=== PATIENT | female | born 2000 | race Caucasian/White ===

== ENCOUNTER 2019-11-14 13:12 | Outpatient (CLI) | payer MEDICAID, SELFPAY ==
--- NOTE | 2019-11-14 | US_ITS ---
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 Cervix: Not visualized. Placenta: Anterior, no previa or abruption. Grade: 1 HEART: FHR of 153 BPM. measurements: BPD = 7.9 cm = 31w4d HC = 29.1 cm = 32w0d AC = 28.0 cm = 32w0d FL = 6.2 cm = 32w0d MEGHANA: 10.0 cm, just above the 50th percentile. Largest vertical pocket 3.9 cm. EFW: 1878 g; 46.6 %. AGA by ultrasound: 31 weeks 6 days IAIN by ultrasound: 01/10/2020 US/[place] [id number] IMPRESSION: 1. Single intrauterine gestation of 31 weeks 6 days with an EDC of 01/10/2020. C orrelates with the first trimester EDC of 01/09/2020. 2. Low normal amniotic fluid index.
== END 2019-11-14 13:13 | disposition home or self-care (01) ==
PROVIDERS: Family Provider Family Medicine; PCP Family Medicine; Visit Provider Family Medicine
DX: Z01.89 Encounter for other specified special examinations (principal)

== ENCOUNTER 2019-11-26 10:10 | Outpatient (CLI) | payer MEDICAID, SELFPAY ==
--- NOTE | 2019-11-26 | US_ITS ---
WS: [id number] ULTRASOUND OB LIMITED TECHNIQUE: Limited ultrasound examination of the fetus. CLINICAL INFORMATION: GESTATIONAL DIABETES MELLITUS IN THIRD TRIMESTER COMPARISON: November 14, 2019 FINDINGS: Single interuterine gestation. presentation is vertex Placental location is anterior. Placenta grade: 1 heart rate 139 BPM. Normal MEGHANA 12.99 Biophysical profile 8 out of 8. breathin movement: 2 tone: 2 Amniotic fluid: 2 IMPRESSION Normal biophysical profile 8 out of 8
== END 2019-11-26 10:11 | disposition home or self-care (01) ==
LOC: RADOUTREAD 14:04
PROVIDERS: Family Provider Family Medicine; PCP Family Medicine; Visit Provider Family Medicine
DX: Z76.89 Persons encountering health services in other specified circumstances (principal)

== ENCOUNTER 2019-11-26 12:45 | Outpatient (CLI) | payer MEDICAID, SELFPAY ==
[2019-11-26 12:45] VITALS: BMI 26.4
[2019-11-26 13:07] VITALS: RESP 18; TEMP 36.9
[2019-11-26 14:01] VITALS: BP 108/65; PULSE 102
== END 2019-11-26 13:43 | disposition home or self-care (01) ==
LOC: OPOB 12:54 → OBGYN 12:55
PROVIDERS: Family Provider Family Medicine; PCP Family Medicine; Visit Provider Family Medicine
DX: O24.419 Gestational diabetes mellitus in pregnancy, unspecified control (principal); Z3A.00 Weeks of gestation of pregnancy not specified
CPT/HCPCS: 59025

== ENCOUNTER 2019-12-03 11:34 | Outpatient (CLI) | payer MEDICAID, SELFPAY ==
[2019-12-03 13:20] VITALS: BMI 21.2
--- NOTE | 2019-12-03 13:33 | PC.NURSE ---
1140- Pt arrived on OB floor via ambulation for scheduled NST.
== END 2019-12-03 12:35 | disposition home or self-care (01) ==
PROVIDERS: Family Provider Family Medicine; PCP Family Medicine; Visit Provider Family Medicine
DX: O24.419 Gestational diabetes mellitus in pregnancy, unspecified control (principal); Z3A.00 Weeks of gestation of pregnancy not specified
CPT/HCPCS: 59025

== ENCOUNTER 2019-12-06 21:12 | Outpatient (CLI) | payer MEDICAID, SELFPAY ==
[2019-12-06 21:26] VITALS: RESP 16; TEMP 36.7
[2019-12-06 21:27] VITALS: BMI 21.7
[2019-12-06 21:32] VITALS: BP 124/77; PULSE 96
[2019-12-06 22:15] LABS: Bilirubin Urine Neg (NEGATIVE); Blood Urine 3+ (Negative); Glucose Urine UA Norm (Normal); Ketones Urine Negative (Negative); Leukocyte Esterase Urine 2+ (Negative); Nitrate Urine Negative (Negative); Protein Urine Neg (Negative); RBC Urine 0-4 /hpf (0-2); Specific Gravity, Urine 1.015 (1.005-1.030); Sulfosalicylic Acid Urine Negative; Urine Appearance Cloudy (CLEAR); Urine Color Yellow (Yellow); Urobilinogen Urine Norm (Negative); WBC Urine 25-40 /hpf (0-5); pH Urine 6 (5-7)
[2019-12-06 22:16] LABS: Add Urine Culture? Yes; Amorphous Sediment Urine 1+; Bacteria Urine 2+
[2019-12-06 22:26] VITALS: BP 133/67; PULSE 86
[2019-12-06 22:37] VITALS: TEMP 37
[2019-12-06] MEDS: nitrofurantoin SR (BID) 100 mg Capsule PO (22:45)
[2019-12-06 23:17] VITALS: RESP 16; TEMP 37
--- NOTE | 2019-12-07 12:18 | PC.NURSE ---
Called [facility] pharmacy [place], and called in patient's prescription for macrobid 100 mg BID for 7 days, no refills. Called Lisandro back after talking with pharmacy to confirm prescription had been called in for her.
== END 2019-12-06 22:47 | disposition home or self-care (01) ==
LOC: OPOB 21:15 → OBGYN 22:30 → OPOB 12-09 09:01
PROVIDERS: Family Provider Family Medicine; PCP Family Medicine; Visit Provider Family Medicine
DX: O26.899 Other specified pregnancy related conditions, unspecified trimester (principal); Z3A.00 Weeks of gestation of pregnancy not specified; R10.9 Unspecified abdominal pain
CPT/HCPCS: 59025; 81001; 87077; 87086; 87186; 99211

== ENCOUNTER 2019-12-10 10:10 | Outpatient (CLI) | payer MEDICAID, SELFPAY ==
[2019-12-10 10:34] VITALS: BP 113/71; PULSE 78
[2019-12-10 10:36] VITALS: RESP 17; TEMP 36.6; BMI 21.6
[2019-12-10 10:49] VITALS: BP 103/69; PULSE 86
== END 2019-12-10 11:00 | disposition home or self-care (01) ==
LOC: OPOB 10:29 → OBGYN 12-16 07:56
PROVIDERS: Family Provider Family Medicine; PCP Family Medicine; Visit Provider Family Medicine
DX: O24.419 Gestational diabetes mellitus in pregnancy, unspecified control (principal); Z3A.00 Weeks of gestation of pregnancy not specified
CPT/HCPCS: 59025; 99211

== ENCOUNTER 2019-12-17 10:08 | Outpatient (CLI) | payer MEDICAID, SELFPAY ==
[2019-12-17 10:38] VITALS: BMI 21.6
[2019-12-17 10:51] VITALS: BP 116/69; PULSE 100; RESP 18; TEMP 36.8
== END 2019-12-17 10:48 | disposition home or self-care (01) ==
LOC: OPOB 10:10 → OBGYN 12-23 09:21
PROVIDERS: Family Provider Family Medicine; PCP Family Medicine; Visit Provider Family Medicine
DX: O24.419 Gestational diabetes mellitus in pregnancy, unspecified control (principal); Z3A.00 Weeks of gestation of pregnancy not specified
CPT/HCPCS: 59025

== ENCOUNTER 2019-12-24 14:25 | Outpatient (CLI) | payer MEDICAID, SELFPAY ==
[2019-12-24 14:30] VITALS: RESP 16; TEMP 36.5
[2019-12-24 14:41] VITALS: BP 117/77; PULSE 84
[2019-12-24 15:00] VITALS: BP 130/85; PULSE 94
[2019-12-24 15:14] VITALS: BMI 22.3
== END 2019-12-24 15:20 | disposition home or self-care (01) ==
LOC: OPOB 14:35 → OBGYN 14:36
PROVIDERS: Family Provider Family Medicine; PCP Family Medicine; Visit Provider Family Medicine
DX: O24.419 Gestational diabetes mellitus in pregnancy, unspecified control (principal); Z3A.00 Weeks of gestation of pregnancy not specified
CPT/HCPCS: 59025; 99211

== ENCOUNTER 2019-12-27 00:27 | Outpatient (CLI) | payer MEDICAID, SELFPAY ==
[2019-12-27 00:36] VITALS: TEMP 36.6
[2019-12-27 00:37] VITALS: BMI 22.4
[2019-12-27 00:59] VITALS: BP 127/75; PULSE 84
[2019-12-27 01:14] VITALS: BP 124/75; PULSE 90
[2019-12-27 01:24] LABS: Bilirubin Urine Neg (NEGATIVE); Blood Urine 2+ (Negative); Glucose Urine UA Norm (Normal); Ketones Urine Negative (Negative); Leukocyte Esterase Urine 2+ (Negative); Nitrate Urine Negative (Negative); Protein Urine Trace (Negative); Specific Gravity, Urine 1.005 (1.005-1.030); Urine Color Straw (Yellow); Urobilinogen Urine Norm (Negative); pH Urine 7 (5-7)
[2019-12-27 01:25] LABS: Add Urine Culture? Yes; Bacteria Urine 1+; RBC Urine 0-4 /hpf (0-2); WBC Urine 25-40 /hpf (0-5)
[2019-12-27 01:29] VITALS: BP 0/0
[2019-12-27 01:30] VITALS: BP 139/85; PULSE 82; RESP 18; TEMP 36.7
[2019-12-27] MEDS: cefUROXime 250 mg Tablet PO (01:52)
== END 2019-12-27 01:52 | disposition home or self-care (01) ==
LOC: OPOB 00:29 → OBGYN 01:39
PROVIDERS: Family Provider Family Medicine; PCP Family Medicine; Visit Provider Family Medicine
DX: O26.899 Other specified pregnancy related conditions, unspecified trimester (principal); Z3A.00 Weeks of gestation of pregnancy not specified; R10.9 Unspecified abdominal pain
CPT/HCPCS: 59025; 81001; 87077; 87086; 87186; 99211

== ENCOUNTER 2020-01-03 21:30 | Outpatient (CLI) | payer MEDICAID, SELFPAY ==
[2020-01-03 21:45] VITALS: BP 137/81; PULSE 97; RESP 16; RESP 18; TEMP 36.7
[2020-01-03 23:43] VITALS: RESP 16; TEMP 36.7
[2020-01-03 23:53] VITALS: BP 123/70; PULSE 85
== END 2020-01-03 23:56 | disposition home or self-care (01) ==
LOC: OPOB 21:43 → OBGYN 21:56
PROVIDERS: Family Provider Family Medicine; PCP Family Medicine; Visit Provider Family Medicine
DX: O36.8190 Decreased fetal movements, unspecified trimester, not applicable or unspecified (principal); Z3A.00 Weeks of gestation of pregnancy not specified
CPT/HCPCS: 59025; 99211

== ENCOUNTER 2020-01-08 05:41 | Inpatient (IN) | payer BC, MEDICAID, SELFPAY ==
[2020-01-08] VITALS (65 sets, daily range): BP systolic 0–153; BP diastolic 0–79; PULSE 51–138; RESP 16–18; TEMP 36.7; O2SAT 96–99; BMI 22.4
[2020-01-08] MEDS: lactated ringers 1,000 ML 999 ML IV ×4 (06:15→14:20)
[2020-01-08 06:32] LABS: Basophils % 0.3 %; Eosinophils # 0.1 10^3/uL (0.0-0.8); Eosinophils % 0.7 %; Hematocrit 28.9 % (37.0-47.0); Hemoglobin 8.8 g/dL (11.5-15.3); Lymphocytes # 1.9 10^3/uL (1.5-6.5); Lymphocytes % 16.4 %; Mean Corpuscular HGB Conc 30.4 g/dL (30.0-36.0); Mean Corpuscular Hemoglobin 24.1 pg (28.0-34.0); Mean Corpuscular Volume 79.2 fL (81-99); Monocytes # 0.8 10^3/uL (0.2-0.9); Monocytes % 6.9 %; Neutrophils # 8.6 10^3/uL (1.8-8.0); Nucleated Red Blood Cells % 0 %; Platelet Count 499 10^3/cmm (130-400); Red Blood Count 3.65 10^6/uL (4.1-5.3); Red Cell Distribution Width 14.9 % (12.1-15.1); White Blood Count 11.4 10^3/uL (4.5-13.0)
[2020-01-08] MEDS: miSOPROStol 100 mcg tablet 25 MCG VAGINAL (08:28)
--- NOTE | 2020-01-08 14:24 | ANES.PREANE2 ---
Pre-Anesthetic Assessment Pre-Anesthetic Assessment: Height/Weight: Height 1.8 m Weight 73.028 kg Temp Pulse Resp BP Pulse Ox 98.0 F 100 18 140/59 99 01/08/20 06:26 01/08/20 14:11 01/08/20 06:26 01/08/20 14:11 01/08/20 14:15 Preop Diagnosis: IUP Proposed Procedure: labor epidural Was Beta Tj taken within 24 hours: N/A Social: Social History: No alcohol and No tobacco Exam: Pre-Anes Outpt Exam: alert, oriented x 3, clear to auscultation bilaterally and regular rate & rhythm Airway: Submandibular: WNL Cervical ROM: WNL MP: 1 History/ROS: No significant history except as noted Pulmonary: Pulmonary: None reported CV/HEM: CV/HEM: None reported : : None reported Hepatic: Hepatic: None reported GI: GI: None reported Metabolic: Comments: gestational diabetic Musc/skel: Musc/skel: None reported Neuropsych: Neuropsych: None reported Anesthetic Plan: ASA status: 2 Anesthesia: Anesthesia Evaluation Risk of > 500 ml blood loss (7ml/kg in children): No Meds/Allergies Current Medications: Current Medications Generic Name Dose Route Start Last Admin Trade Name Freq PRN Reason Stop Dose Admin Lactated Ringer's 1,000 mls @ 999 m ls/hr 01/08/20 10:41 01/08/20 12:53 Lactated Ringers IV 999 mls/hr .Q1H1M PRN Administration Per L&D Rescitati on Protocol [facility] Anesthesia Female Reproductive History: : 1 Data Anesthesia CBC & Chem 7: 01/08/20 06:00 Other Labs: Laboratory Results - last 48 hr 01/08/20 06:00 WBC 11.4 RBC 3.65 L Hgb 8.8 L Hct 28.9 L MCV 79.2 L MCH 24.1 L MCHC 30.4 RDW 14.9 Plt Count 499 H MPV 9.0 Neut % (Auto) 75.0 Lymph % (Auto) 16.4 [place] % (Auto) 6.9 Eos % (Auto) 0.7 Baso % (Auto) 0.3 Neut # (Auto) 8.6 H Lymph # (Auto) 1.9 [place] # (Auto) 0.8 Eos # (Auto) 0.1 Baso # (Auto) 0.0 Nucleated RBC % (auto) 0 Nucleated RBCs # 0.0 Cardiac Studies: No Data to Display
--- NOTE | 2020-01-08 14:27 | ANES.PROC ---
Anesthesia Procedures Procedure/Date: 01/08/20 Epidural: Time Out Performed: Yes Consents Signed: Procedure Consent Consent: requested by attending/covering physician Lumbar Level: L4-L5 Epidural position: sitting Epidural procedure: sterile prep of area, 1% lidocaine to numb the area, 18 g needle, negative for paresthesia passed, neg for paresthesia, test dose given, 1.5% xylocaine 1:200k epi (5ml), placed PCEA, no systemic response, sterile dressing applied, L.U.D. no apparent complications and 0.2% Ropiavacaine @ mls/hr (13)
--- NOTE | 2020-01-08 15:34 | PC.NURSE ---
This nurse used a size 10 Mont[place] straight catheter, this is not an option to click.
--- NOTE | 2020-01-08 17:58 | P.PCNOB_ITS ---
Delivery Note: Date of delivery: January 08, 2020 this 19-year-old 1 now para 1 female at 39 weeks and 6 days gestation was admitted for misoprostol cervical ripening for induction purposes secondary to gestational diabetes and term . Benefits and risks were discussed with the patient and spouse prior to admission. Misoprostol 25 mcg was placed after a reactive strip was found. The infant had a prolonged deceleration shortly after arrival when mom became hypotensive after a needlestick to begin an IV. However, the recovered well. There were occasional spells with decelerations with positioning but did recover. Artificial rupture membranes was accomplished at around 13:15 PM with clear fluid obtained. The patient then began having harder contractions and required epidural anesthesia for comfort. She did then dilate to complete cervical dilatation and was allowed to labor down for approximately 1 hour prior to beginning pushing. She delivered a large 9 pound 1 ounce male infant at 1719. Upon delivery of the head the mouth and nose was suctioned. There was no nuchal cord. There was a moderate shoulder dystocia which was resolved with Kathryn, fundal pressure and rotation of the infant. The infant cried well at and had Apgars of 8 and 9 at 1 and 5 minutes respectively. There was a midline second-degree episiotomy with no extension. Layered surgical closure using the epidural anesthesia that was placed. The placenta delivered spontaneously and intact at 1724. Estimated blood loss approximately 144 mL. Presently, both mother and infant are doing well. Pre-Delivery Course: This patient began care with this physician early in her and was followed throughout her without problems. Maternal blood type was A+ with antibody screen negative. Hepatitis B, hepatitis C, RPR and HIV were negative. Rubella was immune and group B strep was negative. The patient was positive for gestational diabetes but was well controlled with oral metformin 1000 mg twice daily. Ultrasound testing demonstrated no abnormalities and a decision was made for induction after 39 weeks gestation secondary to the gestational diabetes. Delivery: Spontaneous vaginal delivery. Post-Delivery Status: Patient appears to be doing well with mild lochia and will be followed for routine postdelivery care. A&P Assessment and plan (1) Spontaneous vaginal delivery: There was a normal spontaneous vaginal delivery with midline second-degree episiotomy and repair. I expect routine postdelivery care. We will monitor her bleeding and make adjustments as necessary. Will resume her metformin. Status: Acute Coding Level of Care Code Acute Rn Registry for Chg Fwd Diagnoses Spontaneous vaginal delivery O80
[2020-01-08] MEDS: benzocaine-menthol 78 gm Canister 1 SPRAY TOPICAL (19:28)
[2020-01-08] MEDS: lanolin oint 7 gm 1 APPLIC TOPICAL (19:28)
[2020-01-09 02:00] VITALS: BP 118/77; PULSE 81; RESP 16
[2020-01-09 04:00] VITALS: BP 114/75; PULSE 80; RESP 16
[2020-01-09 06:43] LABS: Hematocrit 28.4 % (37.0-47.0); Hemoglobin 8.5 g/dL (11.5-15.3); Mean Corpuscular HGB Conc 29.9 g/dL (30.0-36.0); Mean Corpuscular Hemoglobin 24.2 pg (28.0-34.0); Mean Corpuscular Volume 80.9 fL (81-99); Mean Platelet Volume 8.8 fL (7.4-10.4); Platelet Count 382 10^3/cmm (130-400); Red Blood Count 3.51 10^6/uL (4.1-5.3); Red Cell Distribution Width 15.2 % (12.1-15.1); White Blood Count 10.3 10^3/uL (4.5-13.0)
[2020-01-09] MEDS: docusate sodium 100 mg Capsule PO (09:05)
[2020-01-09] MEDS: prenatal vitamin Capsule 1 CAP PO (09:05)
--- NOTE | 2020-01-09 09:06 | P.DS_ITS ---
Discharge Providers MANUFACTURING ENGINEERING TECHNOLOGIST Date of Admission: 01/08/20 05:41 Date of Discharge: 01/13/20 Attending Provider at Admission: Michael De Paz MD Attending Provider at Discharge: Michael De Paz MD Primary Care Provider: Michael De Paz MD Diagnoses at Discharge Discharge Diagnosis (1) Spontaneous vaginal delivery: Status: Acute Problem details: Patient is doing well at this time with just mild lochia. She is ambulating well and tolerating a regular diet. She was felt to be stable for discharge this evening. Reason for Visit 2 Reason for Visit: Reason For Visit: induction Hospital Course Hospital Course: Patient was admitted on the morning of the day of delivery for misoprostol cervical ripening for induction purposes secondary to gestational diabetes. She delivered by spontaneous vaginal delivery a 9 pound 1 ounce male infant without problems. She did receive epidural anesthesia. She is doing well with just mild lochia and is breast-feeding well. She is felt to be stable for discharge this evening. Information Peripartum Data: Delivery Method: Vaginal Physical Exam Const: COMMON NORMALS: no apparent distress, oriented x3 and well nourished GENERAL APPEARANCE: cooperative ORIENTATION/CONSCIOUSNESS: Yes awake Neck/C-Spine: COMMON NORMALS: no JVD Resp: COMMON NORMALS: normal respiratory effort, no retractions, no use of accessory muscles and clear to auscultation bilaterally AUSCULTATION: clear to auscultation bilaterally Cardio: COMMON NORMALS: no JVD, regular rate, regular rhythm and no murmurs RATE: regular rate RHYTHM: regular rhythm GI: COMMON NORMALS: normal to inspection, nondistended, normoactive bowel sounds, soft to palpation and non-tender (Fundus is firm this morning.) PALPATION: Yes soft Extremity: COMMON NORMALS: normal to inspection, full ROM, normal capillary refill, no calf tenderness and no pedal edema Neuro: COMMON NORMALS: oriented x3, CN's II-XII intact bilaterally, moves all extremities, no focal motor deficits and no sensory deficits noted Psych: COMMON NORMALS: mental status grossly normal, cooperative and affect normal APPEARANCE: Yes grossly normal Urinary Catheter Management^: Straight: Cath Placed During This Visit: yes Urinary Catheter Date of Insertion: 01/08/20 Urinary Catheter Time of Insertion: 15:04 Discharge Data Data Completed and Pending: Labs from last 24 hours 01/09/20 06:30 WBC 10.3 RBC 3.51 L Hgb 8.5 L Hct 28.4 L MCV 80.9 L MCH 24.2 L MCHC 29.9 L RDW 15.2 H Plt Count 382 MPV 8.8 Vitals: Last Vital Signs Temp 98.0 F 01/08/20 06:26 Pulse 80 01/09/20 04:00 Resp 16 01/09/20 04:00 BP 114/75 01/09/20 04:00 Pulse Ox 99 01/08/20 14:15 Discharge Plan Discharge Patient Disposition: Home, Self-Care Condition: Stable Prescriptions: New Dermoplast (with menthol) 20-0.5 % Aerosol 1 spray topical PRN PRN (Reason: Pain) Qty: 90 RF: 0 docusate sodium 100 mg Capsule 100 mg PO BID Qty: 60 RF: 1 ibuprofen 800 mg Tablet 800 mg PO TID Qty: 90 RF: 2 Lanolin (HPA) 100 % Cream 1 applic topical PRN PRN (Reason: Dryness) Qty: 60 RF: 0 Continued Vitamin 27 mg iron- 800 mcg Tablet 1 tab PO DAILY RF: 0 Discharge Orders: Discharge Order (Routine); Ordered 01/09/20 Ordered By: Michael De Paz Referrals: Michael De Paz MD [Primary Care Provider] - 02/19/20 1:30 pm Discharge Diet: Usual diet Discharge Activity: Resume usual activity Patient Instructions: Bottle Feeding Your Baby (GEN), OB Discharge Report, OB Food/Drug Interaction Guide, OB Care at Home, OB Home Care, OB Proud Parent Packet, OB Vaginal Deliveries Activity Restrictions/Additional Instructions: Please make patient appointment to see this physician in 6 weeks and as needed. Discharge Date/Time: 01/09/20 18:30 Discharge Attestations MANUFACTURING ENGINEERING TECHNOLOGIST Time Spent in Discharge Care*: less than 30 min Specific Discharge Activities: Specific discharge activities: educating patie nt, documenting/other paperwork and evaluating patient/reviewing data Status at Discharge: Cognitive status at discharge: cognitively intact , Behavioral status at discharge: cooperative , Functional status at discharge: independent ambulation Overall status at discharge: patient is back to baseline Coding Level of Care Code Acute Contact Center Professional for [facility] Fwd Exam Comprehensive Diagnoses Spontaneous vaginal delivery O80
[2020-01-09 10:12] VITALS: BP 120/89; PULSE 70; RESP 18
[2020-01-09 16:20] VITALS: BP 115/60; PULSE 70; RESP 18
[2020-01-09 18:15] VITALS: BP 110/65; PULSE 65; RESP 18
== END 2020-01-09 18:30 | disposition home or self-care (01) | DRG 807 ==
PROVIDERS: Admitting Provider Family Medicine; Family Provider Family Medicine; PCP Family Medicine; Visit Provider Family Medicine
DX: O24.425 Gestational diabetes mellitus in childbirth, controlled by oral hypoglycemic drugs (principal); Z37.0 Single live birth; O76 Abnormality in fetal heart rate and rhythm complicating labor and delivery; O66.0 Obstructed labor due to shoulder dystocia; O70.1 Second degree perineal laceration during delivery; Z3A.39 39 weeks gestation of pregnancy
CPT/HCPCS: 12345; 36415; 51702; 59025; 59409; 85025; 85027; J2795

== ENCOUNTER 2021-04-22 09:19 | Outpatient (CLI) | payer BC, MEDICAID, SELFPAY ==
[2021-04-22 09:39] VITALS: TEMP 36
[2021-04-22 09:40] VITALS: BP 104/62; PULSE 94
[2021-04-22 09:45] VITALS: BMI 24.0
[2021-04-22 09:56] VITALS: BP 103/57; PULSE 71
== END 2021-04-22 10:10 | disposition home or self-care (01) ==
LOC: OPOB 09:22 → OBGYN 09:23
PROVIDERS: PCP Family Medicine; Visit Provider Family Medicine
DX: O26.899 Other specified pregnancy related conditions, unspecified trimester (principal); Z3A.00 Weeks of gestation of pregnancy not specified; R10.9 Unspecified abdominal pain
CPT/HCPCS: 59025; 99211

== ENCOUNTER 2021-05-06 11:55 | Inpatient (IN) | payer BC, MEDICAID, SELFPAY ==
[2021-05-06] VITALS (16 sets, daily range): BP systolic 102–122; BP diastolic 58–73; PULSE 63–100; RESP 16–18; TEMP 36.6–37.1; O2SAT 99–100; BMI 24.4
[2021-05-06] MEDS: oxytocin 30 UNIT/500 ML BAG 999 UNIT IV (12:05)
--- NOTE | 2021-05-06 12:25 | P.PCN_ITS ---
Procedure/Consent Time out: Time Out Performed: Yes Consent: Consent for Procedure: Consent obtained from patient and Agrees to proceed with procedure Procedure Narrative: This 20-year-old 3 now para 3 female began ramandeep about 930 this morning. They were infrequent so she did not come in until it became hard. She arrived [facility] and was completely dilated when checked and was delivering rapidly. Dr. Strauss was on the floor and he delivered without problems. Infant Apgars were 7 and 9 at 1 and 5 minutes respectively. Please see his delivery note for detail. There was, however a second-degree midline perineal laceration which I repaired using local anesthesia with 2% lidocaine. A layered surgical closure was done using 3-0 Vicryl suture. There were no complications. The vaginal vault was swept after repair was completed with minimal clots and fundus was firm. There were no complications. Acute Procedures Epistaxis Control: Time out performed: Yes
--- NOTE | 2021-05-06 12:40 | P.PCNOB_ITS ---
Delivery Note: Date of delivery: May 06, 2021 Pre-delivery diagnoses: 20-year-old 2 at 40 weeks estimated gestational age presenting in active labor Post-delivery diagnoses: Status post spontaneous vaginal delivery Procedure: Spontaneous vaginal delivery Op report anesthesia: None Delivering Physician: Claudy Strauss Estimated blood loss (mL): 100 Pre-Delivery Course: The patient arrived at the hospital complaining of consistent contractions. Within 10 minutes of arriving at the hospital, she was found to be complete and was involuntarily pushing. She was noted to be GBS negative. Blood type is a positive. She received consistent care from Dr. De Paz. The remainder of her labs were within normal limits. Dr. De Paz was contacted but since she was intermittently going to deliver, I stepped in the room in case he did not make it. Unfortunately he arrived a couple of minutes after the baby was delivered. Delivery: DELIVERY: The patient progressed to complete without difficulty. She delivered a female with a weight of 7 pounds 7 ounces with Apgars of 7, 9. The baby was delivered from the LAZARO position and placed on the mother's abdomen. The cord was then clamped and cut 1 minute after delivery. There was no nuchal cord. There was no meconium. The placenta and 3 vessel cord were delivered intact shortly thereafter. Dr. De Paz took over care at this point and repaired a second-degree posterior midline tear. Post-Delivery Status: Good A&P Assessment and plan (1) Spontaneous vaginal delivery: Status: Acute (2) 40 weeks gestation of : Status: Acute Coding Level of Care Code Acute Electrical Machine Builder for Chg Fwd Diagnoses Spontaneous vaginal delivery O80 40 weeks gestation of Z3A.40
[2021-05-06] MEDS: lidocaine 2% INJ 20 mL INJECTION (13:07)
[2021-05-06 14:37] LABS: Basophils % 0.3 %; Eosinophils % 0.3 %; Hematocrit 32.7 % (37.0-47.0); Hemoglobin 9.5 g/dL (11.5-15.3); Lymphocytes # 2.8 10^3/uL (0.8-4.8); Lymphocytes % 19.2 %; Mean Corpuscular HGB Conc 29.1 g/dL (30.0-36.0); Mean Corpuscular Hemoglobin 20.7 pg (28.0-34.0); Mean Corpuscular Volume 71.1 fl (81-99); Mean Platelet Volume 9.5 fL (7.4-10.4); Monocytes % 7.1 %; Neutrophils # 10.48 10^3/uL (1.8-7.7); Neutrophils % 72.7 %; Nucleated Red Blood Cells % 0 %; Platelet Count 512 10^3/cmm (130-400); White Blood Count 14.4 10^3/uL (4.0-10.0)
[2021-05-06] MEDS: ibuprofen 800 mg tablet PO (21:59)
[2021-05-07 01:06] LABS: Hematocrit 27.2 % (37.0-47.0); Hemoglobin 8.2 g/dL (11.5-15.3); Mean Corpuscular HGB Conc 30.1 g/dL (30.0-36.0); Mean Corpuscular Hemoglobin 20.8 pg (28.0-34.0); Mean Corpuscular Volume 68.9 fl (81-99); Mean Platelet Volume 8.8 fL (7.4-10.4); Platelet Count 337 10^3/cmm (130-400); Red Blood Count 3.95 10^6/uL (4.1-5.3); Red Cell Distribution Width 15.8 % (12.1-15.1); White Blood Count 10.3 10^3/uL (4.0-10.0)
[2021-05-07 02:00] VITALS: BP 98/62; PULSE 75; TEMP 36.4; O2SAT 97
[2021-05-07 06:00] VITALS: BP 106/59; PULSE 78; O2SAT 98
--- NOTE | 2021-05-07 07:10 | PM.OBGYDC ---
Discharge Providers APPARATUS CLEANER Date of Admission: 05/06/21 11:55 Date of Discharge: 05/07/21 Attending Provider at Admission: Michael De Paz MD Attending Provider at Discharge: Michael De Paz MD Primary Care Provider: Michael De Paz MD Diagnoses at Discharge Discharge Diagnosis (1) Spontaneous vaginal delivery: Status: Acute Permanent problem details: Patient is doing well at this time with just mild lochia. She is ambulating well and tolerating a regular diet. She was felt to be stable for discharge this evening. (2) 40 weeks gestation of : Status: Acute Reason for Visit Reason for Visit: contractions Hospital Course Hospital Course Patient has done extremely well since delivery of yesterday rapidly. The is breast-feeding fairly well and mom has minimal lochia and clots. She is ambulating well and tolerating a regular diet and is felt to be stable for discharge this afternoon. Physical Exam Const: COMMON NORMALS: no acute distress, average body habitus, no limitations and healthy appearing HENMT: COMMON NORMALS: moist oral mucous membranes Resp: COMMON NORMALS: normal respiratory effort, No retractions, No use of accessory muscles and clear to auscultation bilaterally AUSCULTATION: clear to auscultation bilaterally Cardio: COMMON NORMALS: regular rate, regular rhythm and No murmurs present (Cardio) RATE: regular rate RHYTHM: regular rhythm GI: COMMON NORMALS: Normal to inspection, nondistended, normoactive bowel sounds present and Soft to palpation (Fundus is firm. ) PALPATION: Yes Soft to palpation (Fundus is firm. ) : COMMON NORMALS: Yes no CVA tenderness BLADDER/KIDNEY EXAM: Yes no CVA tenderness Back/Pelvis: COMMON NORMALS: no CVA tenderness and no thoracic nor lumbar tenderness Extremity: COMMON NORMALS: normal to inspection, full ROM, no calf tenderness and no pedal edema Neuro: COMMON NORMALS: no focal motor deficits and no sensory deficits noted Psych: COMMON NORMALS: mental status grossly normal, cooperative and normal affect Skin: COMMON NORMALS: no rashes or lesions noted GENERAL SKIN EXAM: no rashes or lesions noted Discharge Data Data Completed and Pending: Labs from last 24 hours 05/07/21 05/07/21 05/06/21 01:01 00:32 11:56 WBC 10.3 H Cancelled 14.4 H Corrected WBC Cancelled RBC 3.95 L Cancelled 4.60 Hgb 8.2 L Cancelled 9.5 L Hct 27.2 L Cancelled 32.7 L MCV 68.9 L Cancelled 71.1 L MCH 20.8 L Cancelled 20.7 L MCHC 30.1 Cancelled 29.1 L RDW 15.8 H Cancelled 16.0 H Plt Count 337 D Cancelled 512 H MPV 8.8 Cancelled 9.5 Neut % (Auto) 72.7 Lymph % (Auto) 19.2 [place] % (Auto) 7.1 Eos % (Auto) 0.3 Baso % (Auto) 0.3 Neut # (Auto) 10.48 H Lymph # (Auto) 2.8 [place] # (Auto) 1.0 H Eos # (Auto) 0.0 Baso # (Auto) 0.0 Nucleated RBC % (a uto) 0 Nucleated RBCs # 0.0 Vitals: Last Vital Signs Temp 97.5 F L 05/07/21 02:00 Pulse 78 05/07/21 06:00 Resp 17 05/06/21 20:03 BP 106/59 05/07/21 06:00 Pulse Ox 98 05/07/21 06:00 Discharge Plan Discharge Patient Disposition: Home Condition: Stable Prescriptions: Continued Vitamin 27 mg iron- 800 mcg Tablet 1 tab PO DAILY RF: 0 Dermoplast (with menthol) 20-0.5 % Aerosol 1 spray topical PRN PRN (Reason: Pain) Qty: 90 RF: 0 docusate sodium 100 mg Capsule 100 mg PO BID Qty: 60 RF: 1 ibuprofen 800 mg Tablet 800 mg PO TID Qty: 90 RF: 2 Lanolin (HPA) 100 % Cream 1 applic topical PRN PRN (Reason: Dryness) Qty: 60 RF: 0 Discharge Orders: Discharge Order (Routine); Ordered 05/07/21 Ordered By: Michael De Paz Referrals: Michael De Paz MD [Primary Care Provider] - 6 Weeks Discharge Diet: Usual diet Discharge Activity: Resume usual activity Patient Instructions: Opioid Safety Discharge Attestations APPARATUS CLEANER Time Spent in Discharge Care*: less than 30 min Specific Discharge Activities: Specific discharge activities: educating patient, documenting/other paperwork and evaluating patient/reviewing data Status at Discharge: Cognitive status at discharge: cognitively intact, Behavioral status at discharge: cooperative, Coding Level of Care Code Acute Asphalt Still Operator for Chg Fwd Diagnoses Spontaneous vaginal delivery O80 40 weeks gestation of Z3A.40
[2021-05-07] MEDS: prenatal vitamin Capsule 1 CAP PO (08:59)
[2021-05-07] MEDS: docusate sodium 100 mg Capsule PO (08:59)
[2021-05-07] MEDS: ibuprofen 800 mg tablet PO (08:59)
[2021-05-07 13:20] VITALS: BP 110/56; PULSE 76; RESP 18; TEMP 36.4; O2SAT 98
[2021-05-07 13:53] VITALS: BP 110/56; PULSE 76; RESP 18; TEMP 36.4; O2SAT 98
== END 2021-05-07 13:55 | disposition home or self-care (01) | DRG 807 ==
LOC: OPOB 12:34 → OBGYN 12:34
PROVIDERS: Admitting Provider Family Medicine; PCP Family Medicine; Visit Provider Family Medicine
DX: O70.1 Second degree perineal laceration during delivery (principal); Z37.0 Single live birth; Z3A.40 40 weeks gestation of pregnancy
CPT/HCPCS: 12345; 36415; 59409; 85025; 85027; 98960; 99211

== ENCOUNTER 2021-09-08 03:19 | Inpatient (IN) | payer BC, MEDICAID, SELFPAY ==
[2021-09-08] VITALS (13 sets, daily range): BP systolic 109–128; BP diastolic 46–74; PULSE 75–110; RESP 14–26; TEMP 36.5; O2SAT 97–100; BMI 22.1
--- NOTE | 2021-09-08 03:49 | W.ED.ABDPA2 ---
Documented by User: Naomie Mcduffie MD 09/08/21 22:23 HPI - Abdominal Pain General: Chief Complaint: Abdominal Pain Stated Complaint: ADb Pains\N\V Time Seen by Provider: 09/08/21 03:24 Source: patient Mode of arrival: ambulatory Limitations: no limitations History of Present Illness: HPI narrative: 20-year-old female states that over the last 3 days she been having diffuse abdominal cramping along with vomiting. States she had multiple episodes of vomiting and has not been able to tolerate p.o. States anytime she eats anything she starts having increased cramping and vomiting. States her pain is currently a 5 out of 10 denies any fevers denies any vaginal bleeding or discharge. No abdominal surgical history. Associated Symptoms: Reports nausea and vomiting; Denies chills, dysuria and fever(s) Review of Systems Const: Denies: fever(s), chills, body aches or change in appetite Eyes: Denies: blurry vision or eye discomfort ENMT: Denies: throat pain or dental pain Card: Denies: chest pain Resp: Denies: dyspnea GI: Reports: abdominal pain, nausea and vomiting : Denies: dysuria Musc: Denies: neck pain or back pain Skin/Breast: Denies: rash Neuro: Denies: headache(s) Psych: Denies: depression Akira/Lymph: Denies: easy bruising All/Imm: Denies: urticaria Physical Exam Const: COMMON NORMALS: no acute distress, patient oriented x3 and healthy appearing HENMT: COMMON NORMALS: normocephalic and atraumatic HEAD & SCALP: normocephalic and atraumatic Eye: COMMON NORMALS: Equal, round and reactive pupils present and EOMs intact bilaterally PUPIL: Yes Equal, round and reactive pupils present Neck/C-Spine: COMMON NORMALS: full ROM and supple Chest: COMMONS NORMALS: normal inspection of the chest and normal palpation of entire chest wall Resp: COMMON NORMALS: normal respiratory effort, No retractions, No use of accessory muscles and clear to auscultation bilaterally AUSCULTATION: clear to auscultation bilaterally Cardio: COMMON NORMALS: regular rate, regular rhythm and No murmurs present (Cardio) RATE: regular rate RHYTHM: regular rhythm GI: COMMON NORMALS: Normal to inspection, nondistended, normoactive bowel sounds present, Soft to palpation, non-tender and no masses PALPATION: Yes Soft to palpation Extremity: COMMON NORMALS: normal to inspection and full ROM Neuro: COMMON NORMALS: patient oriented x3, moves all extremities and no focal motor deficits Psych: COMMON NORMALS: mental status grossly normal, Normal thought process present and cooperative THOUGHT PROCESS: Normal thought process present Skin: COMMON NORMALS: no rashes or lesions noted and no wounds GENERAL SKIN EXAM: no rashes or lesions noted Course Vital Signs: Vital signs: Vital Signs Temperature 97.7 F 09/08/21 03:24 Pulse Rate 110 H 09/08/21 20:37 Respiratory Rate 20 H 09/08/21 22:10 Blood Pressure 109/46 09/08/21 20:37 Pulse Oximetry 99 09/08/21 20:37 MDM - Abdominal Pain MDM Narrative: Medical decision making narrative: I took patient back over from Dr. Goins's patient was not able to be transferred was unable to find a bed. I did go ahead and do an MRCP looks like she is likely passed a stone it was in her common bile duct her liver enzymes bili and lipase are all improving. I spoke to our general surgeon here and feels she is stable for admission here now that she does not require an ERCP. Lab Data: Labs: Lab Results 09/08/21 09/08/21 09/08/21 03:55 03:55 03:55 WBC 10.8 10^3/uL H 10 ^3/uL (4.0-10.0) RBC 5.75 10^6/uL H 10 ^6/uL (4.1-5.3) Hgb 13.4 g/dL g/dL (11.5-15.3) Hct 42.7 % % (37.0-47.0) MCV 74.3 fl L fl (81-99) MCH 23.3 pg L pg (28.0-34.0) MCHC 31.4 g/dL g/dL (30.0-36.0) RDW 14.3 % % (12.1-15.1) Plt Count 448 10^3/cmm H 10 ^3/cmm (130-400) MPV 9.1 fL fL (7.4-10.4) Neut % (Auto) 91.0 % % Lymph % (Auto) 5.4 % % [place] % (Auto) 2.9 % % Eos % (Auto) 0.1 % % Baso % (Auto) 0.3 % % Neut # (Auto) 9.87 10^3/uL H 10 ^3/uL (1.8-7.7) Lymph # (Auto) 0.6 10^3/uL L 10^ 3/uL (0.8-4.8) [place] # (Auto) 0.3 10^3/uL 10^3/ uL (0.2-0.9) Eos # (Auto) 0.0 10^3/uL 10^3/ uL (0.0-0.8) Baso # (Auto) 0.0 10^3/uL 10^3/ uL (0.0-0.1) Nucleated RBC % (a uto) 0 % % Nucleated RBCs # 0.0 /100WBC /100W BC Sodium 139 mmol/L mmol/L (136-145) Potassium 3.7 mmol/L mmol/L (3.5-5.1) Chloride 103 mmol/L mmol/L (98-107) Carbon Dioxide 20 mmol/L L mmol/ L (22-29) Anion Gap 19.7 H (5-19) BUN 14 mg/dL mg/dL (6-20) Creatinine 0.7 mg/dL mg/dL (0.5-0.9) GFR Calculation 105.6 mL/min mL/m in (90-130) Glucose 145 mg/dL H mg/dL (65-115) Calculated Osmolal ity 291 mOsm/kg mOsm/ kg (285-295) Calcium 9.2 mg/dL mg/dL (8.5-10.5) Total Bilirubin 2.0 mg/dL H mg/dL (0.15-1.2) AST 215 U/L H U/L (0-32) ALT 275 U/L H U/L (0-33) Alkaline Phosphata se 220 IU/L H IU/L (35-105) Total Protein 7.7 g/dL g/dL (6.6-8.7) Albumin 4.6 g/dL g/dL (3.5-5.2) Globulin 3.1 g/dL g/dL (1.3-4.6) Lipase 64213 U/L H U/L (13-60) HCG, Qual Negative (Negative) Urine Color Urine Appearance Urine pH Ur Specific Gravit y Urine Protein Urine Glucose (UA) Urine Ketones Urine Blood Urine Nitrate Urine Bilirubin Urine Urobilinogen Ur Leukocyte Phuong ase Urine RBC Urine WBC Ur Squamous Epith Cells Amorphous Sediment Urine Bacteria Urine Mucus 09/08/21 09/08/21 09/08/21 03:59 20:30 20:30 WBC 11.8 10^3/uL H 10 ^3/uL (4.0-10.0) RBC 5.12 10^6/uL 10^6 /uL (4.1-5.3) Hgb 12.1 g/dL g/dL (11.5-15.3) Hct 38.9 % % (37.0-47.0) MCV 76.0 fl L fl (81-99) MCH 23.6 pg L pg (28.0-34.0) MCHC 31.1 g/dL g/dL (30.0-36.0) RDW 14.7 % % (12.1-15.1) Plt Count 362 10^3/cmm 10^3 /cmm (130-400) MPV 9.6 fL fL (7.4-10.4) Neut % (Auto) 84.9 % % Lymph % (Auto) 8.5 % % [place] % (Auto) 6.2 % % Eos % (Auto) 0.1 % % Baso % (Auto) 0.1 % % Neut # (Auto) 10.01 10^3/uL H 1 0^3/uL (1.8-7.7) Lymph # (Auto) 1.0 10^3/uL 10^3/ uL (0.8-4.8) [place] # (Auto) 0.7 10^3/uL 10^3/ uL (0.2-0.9) Eos # (Auto) 0.0 10^3/uL 10^3/ uL (0.0-0.8) Baso # (Auto) 0.0 10^3/uL 10^3/ uL (0.0-0.1) Nucleated RBC % (a uto) 0 % % Nucleated RBCs # 0.0 /100WBC /100W BC Sodium Cancelled Potassium Cancelled Chloride Cancelled Carbon Dioxide Cancelled Anion Gap Cancelled BUN Cancelled Creatinine Cancelled GFR Calculation Cancelled Glucose Cancelled Calculated Osmolal ity Cancelled Calcium Cancelled Total Bilirubin Cancelled AST Cancelled ALT Cancelled Alkaline Phosphata se Cancelled Total Protein Cancelled Albumin Cancelled Globulin Cancelled Lipase Cancelled HCG, Qual Urine Color Tresa (Yellow) Urine Appearance Clear (CLEAR) Urine pH 5 (5-7) Ur Specific Gravit y 1.025 (1.005-1.030) Urine Protein 1+ H (Negative) Urine Glucose (UA) Norm (Normal) Urine Ketones 3+ H (Negative) Urine Blood Trace H (Negative) Urine Nitrate Negative (Negative) Urine Bilirubin 2+ H (Negative) Urine Urobilinogen 4 mg/dL H mg/dL (Negative) Ur Leukocyte Ph[place] ase 2+ H (Negative) Urine RBC 0-4 /hpf H /hpf (0-2) Urine WBC >100 /hpf H /hpf (0-5) Ur Squamous Epith Cells 25-40 /hpf H /hpf (0-5) Amorphous Sediment Not Reportable Urine Bacteria 2+ /hpf H /hpf (NONE) Urine Mucus 2+ /hpf /hpf 09/08/21 20:57 WBC RBC Hgb Hct MCV MCH MCHC RDW Plt Count MPV Neut % (Auto) Lymph % (Auto) [place] % (Auto) Eos % (Auto) Baso % (Auto) Neut # (Auto) Lymph # (Auto) [place] # (Auto) Eos # (Auto) Baso # (Auto) Nucleated RBC % (a uto) Nucleated RBCs # Sodium 141 mmol/L mmol/L (136-145) Potassium 3.8 mmol/L mmol/L (3.5-5.1) Chloride 108 mmol/L H mmol /L (98-107) Carbon Dioxide 19 mmol/L L mmol/ L (22-29) Anion Gap 17.8 (5-19) BUN 10 mg/dL mg/dL (6-20) Creatinine 0.6 mg/dL mg/dL (0.5-0.9) GFR Calculation 126.2 mL/min mL/m in (90-130) Glucose 91 mg/dL mg/dL (65-115) Calculated Osmolal ity 291 mOsm/kg mOsm/ kg (285-295) Calcium 7.8 mg/dL L mg/dL (8.5-10.5) Total Bilirubin 0.5 mg/dL mg/dL (0.15-1.2) AST 83 U/L H U/L (0-32) ALT 163 U/L H U/L (0-33) Alkaline Phosphata se 167 IU/L H IU/L (35-105) Total Protein 6.4 g/dL L g/dL (6.6-8.7) Albumin 3.7 g/dL g/dL (3.5-5.2) Globulin 2.7 g/dL g/dL (1.3-4.6) Lipase 3976 U/L H U/L (13-60) HCG, Qual Urine Color Urine Appearance Urine pH Ur Specific Gravit y Urine Protein Urine Glucose (UA) Urine Ketones Urine Blood Urine Nitrate Urine Bilirubin Urine Urobilinogen Ur Leukocyte Phu[place] ase Urine RBC Urine WBC Ur Squamous Epith Cells Amorphous Sediment Urine Bacteria Urine Mucus Discharge Plan Discharge Patient Disposition: Admitted As Inpatient Clinical Impression: Pancreatitis Condition: Stable Referrals: Michael De Paz MD [Primary Care Provider] - Coding Level of Care Code ED Golf Ball Marker for Chg Fwd Exam Comprehensive Documented by User: Claudy Goins MD 09/08/21 18:12 HPI - Abdominal Pain General: Chief Complaint: Abdominal Pain Stated Complaint: ADb Pains\N\V Time Seen by Provider: 09/08/21 03:24 Course ED course: Sign out from Dr Mcduffie. Pt with pancreatitis awaiting admit. We have attempted to transfer the pt as she needs an MRCP, but have not been able to locate an accepting facility today. She has required multiple doses of pain medications. will continue to look for an accepting facility Vital Signs: Vital signs: Vital Signs Temperature 97.7 F 09/08/21 03:24 Pulse Rate 110 H 09/08/21 20:37 Respiratory Rate 20 H 09/08/21 22:10 Blood Pressure 109/46 09/08/21 20:37 Pulse Oximetry 99 09/08/21 20:37 MDM - Abdominal Pain Lab Data: Labs: Lab Results 09/08/21 09/08/21 09/08/21 03:55 03:55 03:55 WBC 10.8 10^3/uL H 10 ^3/uL (4.0-10.0) RBC 5.75 10^6/uL H 10 ^6/uL (4.1-5.3) Hgb 13.4 g/dL g/dL (11.5-15.3) Hct 42.7 % % (37.0-47.0) MCV 74.3 fl L fl (81-99) MCH 23.3 pg L pg (28.0-34.0) MCHC 31.4 g/dL g/dL (30.0-36.0) RDW 14.3 % % (12.1-15.1) Plt Count 448 10^3/cmm H 10 ^3/cmm (130-400) MPV 9.1 fL fL (7.4-10.4) Neut % (Auto) 91.0 % % Lymph % (Auto) 5.4 % % [place] % (Auto) 2.9 % % Eos % (Auto) 0.1 % % Baso % (Auto) 0.3 % % Neut # (Auto) 9.87 10^3/uL H 10 ^3/uL (1.8-7.7) Lymph # (Auto) 0.6 10^3/uL L 10^ 3/uL (0.8-4.8) [place] # (Auto) 0.3 10^3/uL 10^3/ uL (0.2-0.9) Eos # (Auto) 0.0 10^3/uL 10^3/ uL (0.0-0.8) Baso # (Auto) 0.0 10^3/uL 10^3/ uL (0.0-0.1) Nucleated RBC % (a uto) 0 % % Nucleated RBCs # 0.0 /100WBC /100W BC Sodium 139 mmol/L mmol/L (136-145) Potassium 3.7 mmol/L mmol/L (3.5-5.1) Chloride 103 mmol/L mmol/L (98-107) Carbon Dioxide 20 mmol/L L mmol/ L (22-29) Anion Gap 19.7 H (5-19) BUN 14 mg/dL mg/dL (6-20) Creatinine 0.7 mg/dL mg/dL (0.5-0.9) GFR Calculation 105.6 mL/min mL/m in (90-130) Glucose 145 mg/dL H mg/dL (65-115) Calculated Osmolal ity 291 mOsm/kg mOsm/ kg (285-295) Calcium 9.2 mg/dL mg/dL (8.5-10.5) Total Bilirubin 2.0 mg/dL H mg/dL (0.15-1.2) AST 215 U/L H U/L (0-32) ALT 275 U/L H U/L (0-33) Alkaline Phosphata se 220 IU/L H IU/L (35-105) Total Protein 7.7 g/dL g/dL (6.6-8.7) Albumin 4.6 g/dL g/dL (3.5-5.2) Globulin 3.1 g/dL g/dL (1.3-4.6) Lipase 66748 U/L H U/L (13-60) HCG, Qual Negative (Negative) Urine Color Urine Appearance Urine pH Ur Specific Gravit y Urine Protein Urine Glucose (UA) Urine Ketones Urine Blood Urine Nitrate Urine Bilirubin Urine Urobilinogen Ur Leukocyte [place]ong ase Urine RBC Urine WBC Ur Squamous Epith Cells Amorphous Sediment Urine Bacteria Urine Mucus 09/08/21 09/08/21 09/08/21 03:59 20:30 20:30 WBC 11.8 10^3/uL H 10 ^3/uL (4.0-10.0) RBC 5.12 10^6/uL 10^6 /uL (4.1-5.3) Hgb 12.1 g/dL g/dL (11.5-15.3) Hct 38.9 % % (37.0-47.0) MCV 76.0 fl L fl (81-99) MCH 23.6 pg L pg (28.0-34.0) MCHC 31.1 g/dL g/dL (30.0-36.0) RDW 14.7 % % (12.1-15.1) Plt Count 362 10^3/cmm 10^3 /cmm (130-400) MPV 9.6 fL fL (7.4-10.4) Neut % (Auto) 84.9 % % Lymph % (Auto) 8.5 % % [place] % (Auto) 6.2 % % Eos % (Auto) 0.1 % % Baso % (Auto) 0.1 % % Neut # (Auto) 10.01 10^3/uL H 1 0^3/uL (1.8-7.7) Lymph # (Auto) 1.0 10^3/uL 10^3/ uL (0.8-4.8) [place] # (Auto) 0.7 10^3/uL 10^3/ uL (0.2-0.9) Eos # (Auto) 0.0 10^3/uL 10^3/ uL (0.0-0.8) Baso # (Auto) 0.0 10^3/uL 10^3/ uL (0.0-0.1) Nucleated RBC % (a uto) 0 % % Nucleated RBCs # 0.0 /100WBC /100W BC Sodium Cancelled Potassium Cancelled Chloride Cancelled Carbon Dioxide Cancelled Anion Gap Cancelled BUN Cancelled Creatinine Cancelled GFR Calculation Cancelled Glucose Cancelled Calculated Osmolal ity Cancelled Calcium Cancelled Total Bilirubin Cancelled AST Cancelled ALT Cancelled Alkaline Phosphata se Cancelled Total Protein Cancelled Albumin Cancelled Globulin Cancelled Lipase Cancelled HCG, Qual Urine Color Tresa (Yellow) Urine Appearance Clear (CLEAR) Urine pH 5 (5-7) Ur Specific Gravit y 1.025 (1.005-1.030) Urine Protein 1+ H (Negative) Urine Glucose (UA) Norm (Normal) Urine Ketones 3+ H (Negative) Urine Blood Trace H (Negative) Urine Nitrate Negative (Negative) Urine Bilirubin 2+ H (Negative) Urine Urobilinogen 4 mg/dL H mg/dL (Negative) Ur Leukocyte Ph[place]ong ase 2+ H (Negative) Urine RBC 0-4 /hpf H /hpf (0-2) Urine WBC >100 /hpf H /hpf (0-5) Ur Squamous Epith Cells 25-40 /hpf H /hpf (0-5) Amorphous Sediment Not Reportable Urine Bacteria 2+ /hpf H /hpf (NONE) Urine Mucus 2+ /hpf /hpf 09/08/21 20:57 WBC RBC Hgb Hct MCV MCH MCHC RDW Plt Count MPV Neut % (Auto) Lymph % (Auto) [place] % (Auto) Eos % (Auto) Baso % (Auto) Neut # (Auto) Lymph # (Auto) [place] # (Auto) Eos # (Auto) Baso # (Auto) Nucleated RBC % (a uto) Nucleated RBCs # Sodium 141 mmol/L mmol/L (136-145) Potassium 3.8 mmol/L mmol/L (3.5-5.1) Chloride 108 mmol/L H mmol /L (98-107) Carbon Dioxide 19 mmol/L L mmol/ L (22-29) Anion Gap 17.8 (5-19) BUN 10 mg/dL mg/dL (6-20) Creatinine 0.6 mg/dL mg/dL (0.5-0.9) GFR Calculation 126.2 mL/min mL/m in (90-130) Glucose 91 mg/dL mg/dL (65-115) Calculated Osmolal ity 291 mOsm/kg mOsm/ kg (285-295) Calcium 7.8 mg/dL L mg/dL (8.5-10.5) Total Bilirubin 0.5 mg/dL mg/dL (0.15-1.2) AST 83 U/L H U/L (0-32) ALT 163 U/L H U/L (0-33) Alkaline Phosphata se 167 IU/L H IU/L (35-105) Total Protein 6.4 g/dL L g/dL (6.6-8.7) Albumin 3.7 g/dL g/dL (3.5-5.2) Globulin 2.7 g/dL g/dL (1.3-4.6) Lipase 3976 U/L H U/L (13-60) HCG, Qual Urine Color Urine Appearance Urine pH Ur Specific Gravit y Urine Protein Urine Glucose (UA) Urine Ketones Urine Blood Urine Nitrate Urine Bilirubin Urine Urobilinogen Ur Leukocyte [place] ase Urine RBC Urine WBC Ur Squamous Epith Cells Amorphous Sediment Urine Bacteria Urine Mucus Discharge Plan Discharge Patient Disposition: Admitted As Inpatient Clinical Impression: Pancreatitis Condition: Stable Referrals: Michael De Paz MD [Primary Care Provider] - Coding Level of Care Code ED Golf Ball Marker for g Fwd Exam Comprehensive
[2021-09-08] MEDS: sodium chloride 0.9% 1,000 ML 999 ML IV ×3 (03:55→20:36)
[2021-09-08] MEDS: diphenhydrAMINE 50 mg/mL SDV 1mL IVP (04:19)
[2021-09-08] MEDS: metoclopramide 5 mg/mL SDV 2 mL 10 MG IVP (04:19)
[2021-09-08 04:23] LABS: Basophils % 0.3 %; Eosinophils % 0.1 %; Hematocrit 42.7 % (37.0-47.0); Hemoglobin 13.4 g/dL (11.5-15.3); Lymphocytes # 0.6 10^3/uL (0.8-4.8); Lymphocytes % 5.4 %; Mean Corpuscular HGB Conc 31.4 g/dL (30.0-36.0); Mean Corpuscular Hemoglobin 23.3 pg (28.0-34.0); Mean Corpuscular Volume 74.3 fl (81-99); Mean Platelet Volume 9.1 fL (7.4-10.4); Monocytes # 0.3 10^3/uL (0.2-0.9); Monocytes % 2.9 %; Neutrophils # 9.87 10^3/uL (1.8-7.7); Nucleated Red Blood Cells % 0 %; Platelet Count 448 10^3/cmm (130-400); Red Blood Count 5.75 10^6/uL (4.1-5.3); Red Cell Distribution Width 14.3 % (12.1-15.1); White Blood Count 10.8 10^3/uL (4.0-10.0)
[2021-09-08 04:32] LABS: Add Urine Microscopic? YES; Bilirubin Urine 2+ (Negative); Blood Urine Trace (Negative); Glucose Urine UA Norm (Normal); Ketones Urine 3+ (Negative); Leukocyte Esterase Urine 2+ (Negative); Nitrate Urine Negative (Negative); Protein Urine 1+ (Negative); Specific Gravity, Urine 1.025 (1.005-1.030); Urine Appearance Clear (CLEAR); Urine Color Amber (Yellow); Urobilinogen Urine 4 mg/dL (Negative); pH Urine 5 (5-7)
[2021-09-08 04:33] LABS: Add Urine Culture? No; Bacteria Urine 2+ /hpf; Mucus Urine 2+ /hpf; RBC Urine 0-4 /hpf (0-2); Squamous Epithelial Cell Urine 25-40 /hpf (0-5); WBC Urine >100 /hpf (0-5)
[2021-09-08 04:44] LABS: HCG, Serum Qual Negative (Negative)
[2021-09-08 04:45] LABS: Alanine Aminotransferase 275 U/L (0-33); Albumin Level 4.6 g/dL (3.5-5.2); Alkaline Phosphatase 220 IU/L (35-105); Anion Gap 19.7 (5-19); Aspartate Amino Transferase 215 U/L (0-32); Blood Urea Nitrogen 14 mg/dL (6-20); Calcium 9.2 mg/dL (8.5-10.5); Carbon Dioxide 20 mmol/L (22-29); Chloride 103 mmol/L (98-107); Globulin 3.1 g/dL (1.3-4.6); Glomerular Filtration Rate 105.6 mL/min (90-130); Glucose 145 mg/dL (65-115); Osmolality Calculated 291 mOsm/kg (285-295); Potassium 3.7 mmol/L (3.5-5.1); Sodium 139 mmol/L (136-145); Total Protein 7.7 g/dL (6.6-8.7)
[2021-09-08] MEDS: cefTRIAXone 1,000 MG in sodium chloride 0.9% (plus) 50 ML 100 MG IV (04:46)
--- NOTE | 2021-09-08 04:57 | CTR_ITS ---
PROCEDURE INFORMATION: Exam: CT Abdomen And Pelvis With Contrast Exam date and time: 09/08/2021 4:57 AM Age: 20 years old Clinical indication: Abdominal pain; Generalized; Additional info: Abd pain TECHNIQUE: Imaging protocol: Computed tomography of the abdomen and pelvis with contrast. Total images: 239 Radiation optimization: All CT scans at this facility use at least one of these dose optimization techniques: automated exposure control; mA and/or kV adjustment per patient size (includes targeted exams where dose is matched to clinical indication); or iterative reconstruction. Contrast material: OMNI 300; Contrast volume: 95 ml; Contrast route: INTRAVENOUS (IV); COMPARISON: US OB >= 14 weeks fetus [id number] 12/01/2020 8:54 AM RADIATION DOSE METRICS: Total DLP (mGy-cm): 1239.6 FINDINGS: Liver: Normal. No mass. Gallbladder and bile ducts: Cholelithiasis is present without cholecystitis. No gallbladder wall thickening or pericholecystic fluid collection. Intrahepatic and extrahepatic ductal dilatation. Common bile duct diameter is 10 mm. Pancreas: Edematous appearance of pancreatic head neck and proximal body with adjacent peripancreatic fluid felt to represent acute pancreatitis. No evidence of pancreatic necrosis nor loculated fluid collection. Spleen: Normal. No splenomegaly. Adrenal glands: Normal. No mass. Kidneys and ureters: 6 mm incidental left renal cyst requiring no further evaluation. Stomach and bowel: Unremarkable. No obstruction. No mucosal thickening. Appendix: No evidence of appendicitis. Intraperitoneal space: Free fluid seen adjacent to the pancreas, extending into the pericolic gutters and upper abdomen, and within pelvis. No free air detected. Vasculature: Unremarkable. No abdominal aortic aneurysm. Lymph nodes: Unremarkable. No enlarged lymph nodes. Urinary bladder: Unremarkable as visualized. Reproductive: Left ovarian cystic structure is likely a corpus luteum. Bones/joints: Unremarkable. No acute fracture. Soft tissues: Unremarkable. CT/CT abdomen pelvis w con* [id number] IMPRESSION: 1. Cholelithiasis is present without cholecystitis. No gallbladder wall thickening or pericholecystic fluid collection. 2. Intrahepatic and extrahepatic ductal dilatation. Common bile duct diameter is 10 mm. If there is clinical or laboratory evidence of biliary obstructive process, ERCP or MRCP could further define. 3. Edematous appearance of pancreatic head neck and proximal body with adjacent peripancreatic fluid felt to represent acute pancreatitis. No evidence of pancreatic necrosis nor loculated fluid collection. 4. Free fluid seen adjacent to the pancreas, extending into the pericolic gutters and upper abdomen, and within pelvis. No free air detected.
[2021-09-08] MEDS: ondansetron 2 mg/ML SDV 2 mL 4 MG IVP (05:05)
[2021-09-08] MEDS: morphine 4 mg/mL SDV 1 mL IVP (05:13)
[2021-09-08] MEDS: iohexol 300 mg/mL 100 mL Btl IV (05:16)
[2021-09-08 05:36] LABS: Lipase 10935 U/L (13-60)
[2021-09-08] MEDS: HYDROmorphone 1 mg/mL INJ 1 mL IVP ×6 (05:59→22:10)
--- NOTE | 2021-09-08 18:07 | MRR_ITS ---
PROCEDURE INFORMATION: Exam: MR Abdomen Without Contrast Exam date and time: 09/08/2021 6:07 PM Age: 20 years old Clinical indication: Abdominal pain; Other: Mid abd. Pain; Additional info: Abd pain TECHNIQUE: Imaging protocol: MR of the abdomen without contrast. COMPARISON: CT abdomen pelvis w con* [id number] 09/08/2021 5:16 AM FINDINGS: Liver: No mass. Gallbladder and bile ducts: The gallbladder is distended and contains nonobstructing stones. The common bile duct is also distended measuring 9-10 mm. However there are no intraluminal filling defects to indicate an obstructing stone. Pancreas: No evidence of a pancreatic or ampullary mass. No dilatation of the pancreatic duct. Although there is fluid around the pancreas the gland does not appear obviously edematous. Spleen: Unremarkable. No splenomegaly. Adrenal glands: Unremarkable. No mass. Kidneys and ureters: Unremarkable. No solid mass. No hydronephrosis. Stomach and bowel: Visualized stomach and intestines are unremarkable. Intraperitoneal space: There is small to moderate upper abdominal free fluid. Arteries: No abdominal aortic aneurysm. Bones/joints: Unremarkable. Soft tissues: Unremarkable. MR/MR MRCP [id number] IMPRESSION: 1. Enlarged gallbladder containing stones. The common bile duct is also distended but no obstructing stone or mass. This could be due to a recently passed calculus. 2. Upper abdominal free fluid. This might be due to the recently ruptured follicle seen on today's CT. Pancreatitis is also a consideration although the gland is not obviously swollen
[2021-09-08] MEDS: levofloxacin-dextrose 5 % 750 MG/150 ML PREMIX 100 MG IV (20:35)
[2021-09-08 20:46] LABS: Basophils % 0.1 %; Eosinophils % 0.1 %; Hematocrit 38.9 % (37.0-47.0); Hemoglobin 12.1 g/dL (11.5-15.3); Lymphocytes % 8.5 %; Mean Corpuscular HGB Conc 31.1 g/dL (30.0-36.0); Mean Corpuscular Hemoglobin 23.6 pg (28.0-34.0); Mean Platelet Volume 9.6 fL (7.4-10.4); Monocytes # 0.7 10^3/uL (0.2-0.9); Monocytes % 6.2 %; Neutrophils # 10.01 10^3/uL (1.8-7.7); Neutrophils % 84.9 %; Nucleated Red Blood Cells % 0 %; Platelet Count 362 10^3/cmm (130-400); Red Blood Count 5.12 10^6/uL (4.1-5.3); Red Cell Distribution Width 14.7 % (12.1-15.1); White Blood Count 11.8 10^3/uL (4.0-10.0)
[2021-09-08 21:26] LABS: Alanine Aminotransferase 163 U/L (0-33); Albumin Level 3.7 g/dL (3.5-5.2); Alkaline Phosphatase 167 IU/L (35-105); Blood Urea Nitrogen 10 mg/dL (6-20); Calcium 7.8 mg/dL (8.5-10.5); Carbon Dioxide 19 mmol/L (22-29); Chloride 108 mmol/L (98-107); Globulin 2.7 g/dL (1.3-4.6); Glomerular Filtration Rate 126.2 mL/min (90-130); Glucose 91 mg/dL (65-115); Osmolality Calculated 291 mOsm/kg (285-295); Sodium 141 mmol/L (136-145); Total Bilirubin 0.5 mg/dL (0.15-1.2); Total Protein 6.4 g/dL (6.6-8.7)
[2021-09-08 21:31] LABS: Anion Gap 17.8 (5-19); Aspartate Amino Transferase 83 U/L (0-32); Potassium 3.8 mmol/L (3.5-5.1)
[2021-09-08 21:47] LABS: Lipase 3976 U/L (13-60)
[2021-09-08] MEDS: sodium chloride 0.9% 1,000 ML 150 ML IV (22:14)
--- NOTE | 2021-09-08 23:54 | PM.HP ---
Providers/Chief Complaint Admitting Physician: Norma Burgos MD Primary Care Provider: Michael De Paz MD Chief Complaint: ADb Pains\N\V History of Present Illness Lisandro Infante is a 20 year old female with a past medical history of gestational diabetes, presented yesterday with chief complaints of 3 days of abdominal pain described as a diffuse abdominal cramping with multiple episodes of vomiting and emesis. She was unable to tolerate any p.o. intake at the time of her arrival. Upon evaluation she was found to have acute pancreatitis, likely related to gallstones. Cholelithiasis, intrahepatic and extrahepatic ductal dilatation was noted with CBD diameter of 10 mm on CAT scan on 09/08. [facility] given possible need for ERCP, however patient was unable to be transferred due to nonavailability of beds at any of the multiple facilities contacted. An MRCP was performed today which showed an enlarged gallbladder containing stones, CBD was noted to be distended but no longer with any obstructing stone or masses, thought to be related to a recently passed calculus. Upper abdominal free fluid likely related to pancreatitis. Between yesterday and September 09, patient's LFTs have started to trend down, as is her lipase. She continues to have abdominal pain and nausea at this time. Review of Systems General: Reports: 10 or more systems reviewed and unremarkable except in HPI and below Const: Denies: fever(s), chills or body aches Eyes: Denies: change in vision, blurry vision or photophobia ENMT: Reports: hoarseness; Denies: throat pain, enlarged tonsils, odynophagia or nasal congestion Card: Denies: chest pain, palpitations, irregular heart rhythm, edema, swelling of feet/ankles, lightheadedness, pre-syncope, dyspnea on exertion or orthopnea Resp: Denies: dyspnea, productive cough, non-productive cough, wheezing, stridor, pain on inspiration, change in phlegm color, hemoptysis or chest congestion GI: Denies: abdominal pain, nausea, vomiting, hematemesis, coffee ground emesis, dysphagia, heartburn, diarrhea, constipation, GI cramping, change in stool character, hematochezia or melena : Denies: flank pain, difficulty voiding, dysuria, urinary frequency, urinary urgency, urinary hesitancy or hematuria Musc: Denies: neck pain, back pain, extremity pain, joint swelling, joint warmth or deformity Neuro: Denies: headache(s), numbness in extremities, weakness in extremities, sensory changes, difficulty walking, frequent falls, dizziness, vertigo, behavioral changes, Slurred speech present or seizure-like activity Psych: Denies: anxiety, depression, suicidal ideation or homicidal ideation Endo: Denies: polyuria, polydipsia, tired all the time, cold intolerance or hot flashes Akira/Lymph: Denies: easy bruising or easy bleeding Medications/Allergies Home Medications Medication Instructions Recorded Confirmed Last Taken Type norethindrone (contraceptive) 0.35 mg PO DAILY 09/08/21 09/08/21 09/07/21 History Allergies Allergy/AdvReac Type Severity Reaction Status Date / Time amoxicillin Allergy ALGY-Rash Verified 01/08/20 06:37 azithromycin Allergy ALGY-Rash Verified 01/08/20 06:37 Vitals/I&O/Wt Last Vital Signs Temp 97.7 F 09/08/21 03:24 Pulse 110 H 09/08/21 20:37 Resp 20 H 09/08/21 22:10 BP 109/46 09/08/21 20:37 Pulse Ox 99 09/08/21 20:37 Weight last 48 hrs Weight 68.039 kg Physical Exam Narrative: EXAM NARRATIVE: General: No acute distress, AO x3 HEENT: PERRLA, pupils bilaterally equal and reactive, pallors not present Chest: Normal vesicular breath sounds, no added sounds, equal good air entry bilaterally CVS: S1-S2 regular, no murmurs, no tachycardia, no gallops, no rubs Abdomen: Soft, TTP over epigastric region Neuro: No focal deficits, no facial deformity, AO x3, power 5/5 in all limbs Data : 09/08/21 20:30 09/08/21 20:57 Other data: Laboratory Results WBC 11.8 10^3/uL (4.0-10.0) H 09/08/21 20:30 RBC 5.12 10^6/uL (4.1-5.3) 09/08/21 20:30 Hgb 12.1 g/dL (11.5-15.3) 09/08/21 20:30 Hct 38.9 % (37.0-47.0) 09/08/21 20:30 MCV 76.0 fl (81-99) L 09/08/21 20:30 MCH 23.6 pg (28.0-34.0) L 09/08/21 20:30 MCHC 31.1 g/dL (30.0-36.0) 09/08/21 20:30 RDW 14.7 % (12.1-15.1) 09/08/21 20:30 Plt Count 362 10^3/cmm (130-400) 09/08/21 20:30 MPV 9.6 fL (7.4-10.4) 09/08/21 20:30 Neut % (Auto) 84.9 % 09/08/21 20:30 Lymph % (Auto) 8.5 % 09/08/21 20:30 [place] % (Auto) 6.2 % 09/08/21 20:30 Eos % (Auto) 0.1 % 09/08/21 20:30 Baso % (Auto) 0.1 % 09/08/21 20:30 Neut # (Auto) 10.01 10^3/uL (1.8-7.7) H 09/08/21 20:30 Lymph # (Auto) 1.0 10^3/uL (0.8-4.8) 09/08/21 20:30 [place] # (Auto) 0.7 10^3/uL (0.2-0.9) 09/08/21 20:30 Eos # (Auto) 0.0 10^3/uL (0.0-0.8) 09/08/21 20:30 Baso # (Auto) 0.0 10^3/uL (0.0-0.1) 09/08/21 20:30 Nucleated RBC % (auto) 0 % 09/08/21 20:30 Nucleated RBCs # 0.0 /100WBC 09/08/21 20:30 Sodium 141 mmol/L (136-145) 09/08/21 20:57 Potassium 3.8 mmol/L (3.5-5.1) 09/08/21 20:57 Chloride 108 mmol/L (98-107) H 09/08/21 20:57 Carbon Dioxide 19 mmol/L (22-29) L 09/08/21 20:57 Anion Gap 17.8 (5-19) 09/08/21 20:57 BUN 10 mg/dL (6-20) 09/08/21 20:57 Creatinine 0.6 mg/dL (0.5-0.9) 09/08/21 20:57 GFR Calculation 126.2 mL/min (90-130) 09/08/21 20:57 Glucose 91 mg/dL (65-115) 09/08/21 20:57 Calculated Osmolality 291 mOsm/kg (285-295) 09/08/21 20:57 Calcium 7.8 mg/dL (8.5-10.5) L 09/08/21 20:57 Magnesium 1.6 mg/dL (1.7-2.3) L 09/08/21 20:57 Total Bilirubin 0.5 mg/dL (0.15-1.2) 09/08/21 20:57 AST 83 U/L (0-32) H 09/08/21 20:57 ALT 163 U/L (0-33) H 09/08/21 20:57 Alkaline Phosphatase 167 IU/L (35-105) H 09/08/21 20:57 Total Protein 6.4 g/dL (6.6-8.7) L 09/08/21 20:57 Albumin 3.7 g/dL (3.5-5.2) 09/08/21 20:57 Globulin 2.7 g/dL (1.3-4.6) 09/08/21 20:57 Triglycerides 81 mg/dL (0-150) 09/08/21 20:57 Lipase 3976 U/L (13-60) H 09/08/21 20:57 HCG, Qual Negative (Negative) 09/08/21 03:55 Urine Color Tresa (Yellow) 09/08/21 03:59 Urine Appearance Clear (CLEAR) 09/08/21 03:59 Urine pH 5 (5-7) 09/08/21 03:59 Ur Specific [place] 1.025 (1.005-1.030) 09/08/21 03:59 Urine Protein 1+ (Negative) H 09/08/21 03:59 Urine Glucose (UA) Norm (Normal) 09/08/21 03:59 Urine Ketones 3+ (Negative) H 09/08/21 03:59 Urine Blood Trace (Negative) H 09/08/21 03:59 Urine Nitrate Negative (Negative) 09/08/21 03:59 Urine Bilirubin 2+ (Negative) H 09/08/21 03:59 Urine Urobilinogen 4 mg/dL (Negative) H 09/08/21 03:59 Ur Leukocyte Esterase 2+ (Negative) H 09/08/21 03:59 Urine RBC 0-4 /hpf (0-2) H 09/08/21 03:59 Urine WBC >100 /hpf (0-5) H 09/08/21 03:59 Ur Squamous Epith Cells 25-40 /hpf (0-5) H 09/08/21 03:59 Amorphous Sediment Not Reportable 09/08/21 03:59 Urine Bacteria 2+ /hpf (NONE) H 09/08/21 03:59 Urine Mucus 2+ /hpf 09/08/21 03:59 Impressions Abdomen/Pelvis CT 09/08/21 04:57 IMPRESSION: 1. Cholelithiasis is present without cholecystitis. No gallbladder wall thickening or pericholecystic fluid collection. 2. Intrahepatic and extrahepatic ductal dilatation. Common bile duct diameter is 10 mm. If there is clinical or laboratory evidence of biliary obstructive process, ERCP or MRCP could further define. 3. Edematous appearance of pancreatic head neck and proximal body with adjacent peripancreatic fluid felt to represent acute pancreatitis. No evidence of pancreatic necrosis nor loculated fluid collection. 4. Free fluid seen adjacent to the pancreas, extending into the pericolic gutters and upper abdomen, and within pelvis. No free air detected. Cholangiopancreatography MRI 09/08/21 18:07 IMPRESSION: 1. Enlarged gallbladder containing stones. The common bile duct is also distended but no obstructing stone or mass. This could be due to a recently passed calculus. 2. Upper abdominal free fluid. This might be due to the recently ruptured follicle seen on today's CT. Pancreatitis is also a consideration although the gland is not obviously swollen A&P Assessment and plan (1) Pancreatitis: Patient admitted for acute pancreatitis likely related to gallstone pancreatitis. Elevated lipase, CT on presentation with acute pancreatitis, dilated CBD. Patient was attempted to be transferred out for ERCP and specialty GI services for over 24 hours, however due to nonavailability of beds at any of the contacted hospitals, patient is now being admitted at [facility]. MRCP performed today shows a dilated CBD, however no obstructing stones. LFTs trending down today, likely clinical picture consistent with recently passed stones may be the culprit for pancreatitis Check triglyceride level N.p.o. for bowel rest IV fluid normal saline at 150 cc an hour. Alternating morphine and Toradol for pain management, monitor renal function General surgery consulted from ER Status: Acute Qualifiers: Acute pancreatitis complication: unspecified Chronicity: acute Pancreatitis type: unspecified pancreatitis type Qualified Code(s): K85.90 - Acute pancreatitis without necrosis or infection, unspecified (2) UTI (urinary tract infection): empric ceftriaxone given + UA check urine cx Status: Acute Attestations Medical Necessity Statement*: Anticipate greater than 2 midnight admission for management of above defined pancreatitis, need for IV fluid hydration bowel rest, close clinical monitoring Coding Level of Care Code Acute Administrative Liaison for [facility] Fwd Diagnoses Pancreatitis K85.90 Acute pancreatitis complication: unspecified Chronicity: acute Pancreatitis type: unspecified pancreatitis type UTI (urinary tract infection) N39.0
[2021-09-09] VITALS (11 sets, daily range): BP systolic 105–123; BP diastolic 53–71; PULSE 104–111; RESP 16–19; TEMP 36.8–37.7; O2SAT 95–99; BMI 22.6
[2021-09-09 00:08] LABS: Triglycerides 81 mg/dL (0-150)
[2021-09-09] MEDS: ketorolac 30 mg/mL INJ 15 MG IVP ×3 (00:28→16:25)
[2021-09-09] MEDS: famotidine 20 mg/2 mL INJ IVP ×2 (00:29→11:09)
[2021-09-09] MEDS: enoxaparin 40 mg/0.4 mL Syringe SUBCUT (00:29)
[2021-09-09 01:37] LABS: Magnesium 1.6 mg/dL (1.7-2.3)
[2021-09-09] MEDS: HYDROmorphone 1 mg/mL INJ 1 mL IVP (03:20)
--- NOTE | 2021-09-09 04:00 | XRR_ITS ---
PROCEDURE INFORMATION: Exam: XR Chest Exam date and time: 09/09/2021 4:00 AM Age: 20 years old Clinical indication: Shortness of breath; Additional info: Dyspnea TECHNIQUE: Imaging protocol: XR of the chest. Views: 1 view. COMPARISON: MR MRCP [id number] 09/08/2021 6:44 PM FINDINGS: Lungs: Unremarkable. No consolidation. Pleural spaces: Unremarkable. No pleural effusion. No pneumothorax. Heart/Mediastinum: Unremarkable. No cardiomegaly. Bones/joints: Unremarkable. XR/XR chest 1V portable [id number] IMPRESSION: No acute findings.
[2021-09-09 06:17] LABS: Alanine Aminotransferase 131 U/L (0-33); Albumin Level 3.5 g/dL (3.5-5.2); Alkaline Phosphatase 155 IU/L (35-105); Anion Gap 16.7 (5-19); Aspartate Amino Transferase 51 U/L (0-32); Blood Urea Nitrogen 10 mg/dL (6-20); Calcium 7.9 mg/dL (8.5-10.5); Carbon Dioxide 17 mmol/L (22-29); Chloride 112 mmol/L (98-107); Globulin 2.4 g/dL (1.3-4.6); Glomerular Filtration Rate 126.2 mL/min (90-130); Glucose 80 mg/dL (65-115); Magnesium 1.7 mg/dL (1.7-2.3); Osmolality Calculated 292 mOsm/kg (285-295); Potassium 3.7 mmol/L (3.5-5.1); Sodium 142 mmol/L (136-145); Total Bilirubin 0.5 mg/dL (0.15-1.2); Total Protein 5.9 g/dL (6.6-8.7)
[2021-09-09 07:05] LABS: Basophils % 0.1 %; Eosinophils # 0.1 10^3/uL (0.0-0.8); Eosinophils % 0.9 %; Hematocrit 34.2 % (37.0-47.0); Hemoglobin 10.5 g/dL (11.5-15.3); Lymphocytes # 1.3 10^3/uL (0.8-4.8); Mean Corpuscular HGB Conc 30.7 g/dL (30.0-36.0); Mean Corpuscular Hemoglobin 23.5 pg (28.0-34.0); Mean Corpuscular Volume 76.7 fl (81-99); Mean Platelet Volume 9.1 fL (7.4-10.4); Monocytes # 0.6 10^3/uL (0.2-0.9); Monocytes % 6.1 %; Neutrophils # 7.25 10^3/uL (1.8-7.7); Neutrophils % 78.5 %; Nucleated Red Blood Cells % 0 %; Platelet Count 281 10^3/cmm (130-400); Red Blood Count 4.46 10^6/uL (4.1-5.3); Red Cell Distribution Width 14.6 % (12.1-15.1); White Blood Count 9.2 10^3/uL (4.0-10.0)
[2021-09-09] MEDS: sodium chloride 0.9% 1,000 ML 150 ML IV ×3 (07:50→21:40)
[2021-09-09] MEDS: cefTRIAXone 1,000 MG in sodium chloride 0.9% (plus) 50 ML 100 MG IV (07:51)
[2021-09-09] MEDS: morphine 4 mg/mL SDV 1 mL 2 MG IVP ×3 (07:51→19:27)
[2021-09-09 08:18] LABS: Lipase 2962 U/L (13-60)
--- NOTE | 2021-09-09 10:21 | PC.CHAP ---
Pastoral Care Encounter/Spiritual Assessment Type of Contact [] Declined harvest supervisor visit [] Patient/Family/Request visit [] Outpatient visit [] Follow-up visit [] Physician referral [] Code/Alert [x] Routine visit [] Staff referral [] Actively dying [] Patient sleeping [] Family support [] [] Out of room [] Palliative care [] [x] Receiving care in room [] Pre-surgical visit [] Trauma [] Long length of stay [] ICU visit [] Other: Relational/Emotional Strength [x] Patient feels connected with others/family/visitors/staff [] Distress [] Loneliness/isolation [] Abandonment Spirituality of Patient [x] Person of Cherelle [] Attends Taoist of their [place] [x] Believes in Prayer [] Reads Bible or Mandaen materials [] There are Spiritual issues to be addressed Director Of Extension Work Interventions [x] Prayer [x] Active listening [x] Non-anxious presence [x] Spiritual/emotional support [] Crisis/trauma care [x] Spiritual counseling [] Bereavement support [] Provided bereavement packet [] Provided Bible/devotional materials [] Provided toy/stuffed animal, coloring book to patient or family member [] Provided Communion [] Anointing/[place] [] Salvation [x] Completed spiritual assessment [] Other: Impact on Illness or Injury [] Angry [] Fearful [x] Anxious [] Often cries [] Exhaustion [] Unable to work [] Unable to attend hindu [] Unable to walk/stand [] Unable to read [] Unable to drive [] Unable to eat/drink [] Unable to sleep [] Unable to be with family [] Patient intubated [] Other: Summary youth under moms care in some pain has some negative feelings +1 mother Time spent with patient 10 mins
[2021-09-09] MEDS: magnesium hydroxide 30 mL UDC PO (10:25)
--- NOTE | 2021-09-09 12:45 | PM.PN ---
Subjective Subjective: Interval history: Admitted overnight. Family at bedside. Comfortable. Denies any nausea. Complaining of constipation. States constipation is chronic. Vitals/I&O/Wt Last Vital Signs Temp 98.2 F 09/09/21 11:54 Pulse 104 H 09/09/21 11:54 Resp 16 09/09/21 11:54 BP 115/71 09/09/21 11:54 Pulse Ox 95 09/09/21 11:54 09/08/21 09/09/21 09/09/21 22:59 06:59 14:59 Intake Total 1000 / 1000 1200 / 1200 Output Total 275 / 275 Balance 725 / 725 1200 / 1200 Weight last 48 hrs Weight 63.503 kg Weight 68.039 kg Physical Exam Narrative: EXAM NARRATIVE: General: No acute distress, AO x3 HEENT: PERRLA, pupils bilaterally equal and reactive, pallors not present Chest: Normal vesicular breath sounds, no added sounds, equal good air entry bilaterally CVS: S1-S2 regular, no murmurs, no tachycardia, no gallops, no rubs Abdomen: Soft, TTP over epigastric region and right upper quadrant Neuro: No focal deficits, no facial deformity, AO x3, power 5/5 in all limbs Data : 09/09/21 06:26 09/09/21 04:39 Micro: Microbiology 09/09/21 04:39 Blood Culture - Preliminary Blood SPECIMEN COLLECTED A&P Assessment and plan (1) Pancreatitis: Most likely secondary to gallstone pancreatitis. MRCP results appreciated. Consistent with dilated CBD however no obstructing stones. CT abdomen pelvis consistent with multiple gallstones. Lipase trending down. Start with clear liquid diet. Will advance gradually depending on tolerance. Protonix for PUD prophylaxis, Zofran as needed. IV fluids at 150 cc/h. Appreciate Dr. Jeronimo recommendation. Most likely will need cholecystectomy as an outpatient. Status: Acute Qualifiers: Acute pancreatitis complication: unspecified Chronicity: acute Pancreatitis type: unspecified pancreatitis type Qualified Code(s): K85.90 - Acute pancreatitis without necrosis or infection, unspecified (2) UTI (urinary tract infection): empric ceftriaxone given + UA check urine cx Status: Acute Attestations Medical Necessity Statement*: Requires further hospitalization for management of gallstone pancreatitis while diet is advanced, UTI Time Spent in Patient Care: Greater than 35 minutes (>than 50% of time spent in counselling and/or direct pt care on unit). Coding Level of Care Code Acute Natural Resource Specialist for [facility] Fwd Diagnoses Pancreatitis K85.90 Acute pancreatitis complication: unspecified Chronicity: acute Pancreatitis type: unspecified pancreatitis type UTI (urinary tract infection) N39.0
--- NOTE | 2021-09-09 16:07 | P.CONIM_ITS ---
Providers/Reason For Consult Consulting Physician/Specialty*: General Surgery Dr. Jeronimo Reason for Consult*: Gallstone pancreatitis Attending Physician: Kevan Acosta MD Primary Care Provider: Michael De Paz MD History of Present Illness History of Present Illness Lisandro Infante is a 20 year old female who presented to the ER yesterday morning with complaints of abdominal pain, nausea and vomiting for 3 days. In the emergency room she was noted to have gallstone pancreatitis and CT abdomen pelvis had shown CBD measuring 10 mm. Patient is therefore awaiting transfer to outside facility for ERCP. While awaiting transfer and MRCP was obtained which showed that there was no CBD stones or obstruction suggesting that she probably passed the stone. Labs were subsequently repeated which showed that her LFTs and lipase was trending down and therefore she was admitted for observation. At present she denies significant abdominal pain is tolerating clear liquid diet and denies any nausea or vomiting Review of Systems General: Reports: 10 or more systems reviewed and unremarkable except in HPI and below Meds/Allergies Home Medications and Allergies Home Medications Medication Instructions Recorded Confirmed Last Taken Type norethindrone (contraceptive) 0.35 mg PO DAILY 09/08/21 09/08/21 09/07/21 History Allergies Allergy/AdvReac Type Severity Reaction Status Date / Time amoxicillin Allergy ALGY-Rash Verified 01/08/20 06:37 azithromycin Allergy ALGY-Rash Verified 01/08/20 06:37 Current Medications Current Medications Generic Name Dose Route Start Last Admin Trade Name Freq PRN Reason Stop Dose Admin Enoxaparin Sodium 40 mg 09/08/21 23:45 09/09/21 00:29 Enoxaparin 40 Mg/0.4 Ml Syringe SUBCUT 40 mg Q24H RADHA Administration Famotidine 20 mg 09/08/21 23:45 09/09/21 11:09 Famotidine 20 Mg/2 Ml Inj IVP 20 mg Q12H RADHA Administration Sodium Chloride 1,000 mls @ 150 mls/hr 09/08/21 19:30 09/09/21 15:20 Sodium Chloride 0.9% IV 150 mls/hr .Q6H40M RADHA Administration Ceftriaxone Sodium 1,000 mg/ 50 mls @ 100 mls/hr 09/09/21 05:30 09/09/21 09:16 Sodium Chloride IV Infused Q24H RADHA Infusion Protocol Ketorolac Tromethamine 15 mg 09/08/21 23:48 09/09/21 09:27 Ketorolac 30 Mg/Ml Inj IVP 09/11/21 23:47 15 mg Q8H PRN Administration MODERATE PAIN Morphine Sulfate 2 mg 09/08/21 23:48 09/09/21 14:03 Morphine 4 Mg/Ml Sdv 1 Ml IVP 2 mg Q4H PRN Administration SEVERE PAIN PFSH Acute PFSH: Medical History Gallstone pancreatitis Gestational diabetes Female Reproductive History: Date of last menstrual period: 08/06/21 Vitals/I&O/Wt Last Vital Signs Temp 98.2 F 09/09/21 11:54 Pulse 104 H 09/09/21 11:54 Resp 17 09/09/21 14:03 BP 115/71 09/09/21 11:54 Pulse Ox 95 09/09/21 11:54 09/09/21 09/09/21 09/09/21 06:59 14:59 22:59 Intake Total 1000 / 1000 2820 / 2820 Output Total 275 / 275 Balance 725 / 725 2820 / 2820 Weight last 48 hrs Weight 140 lb Weight 150 lb Physical Exam Narrative: EXAM NARRATIVE: HEENT: Normocephalic Eye: Sclera /conjunctiva normal Respiratory and chest: Bilateral clear breath sounds on auscultation Cardiovascular: Normal S1 and S2 heart sounds Abdomen: Soft to palpation Neurological: Oriented to place person and time Skin: Intact, no lesions appreciated on gross exam Data Micro: Micro: Microbiology 09/09/21 04:39 Blood Culture - Pr eliminary Blood SPECIMEN [facility] A&P Assessment and plan (1) Gallstone pancreatitis: 20-year-old female with gallstone pancreatitis who is clinically stable without any evidence of peritonitis. Her WBC is 9.2 , LFTs have improved and lipase has trended down from 10,935 to 2962. Continue clear liquid diet, advance as tolerated Repeat labs tomorrow Pepcid for GI prophylaxis Lovenox for DVT prophylaxis Hopefully patient can go home in the next 24 to 48 hours and will plan for laparoscopic possible open cholecystectomy next week Procedure, risks, benefits and alternatives have been discussed with the patient who wishes to proceed with surgery. She will need COVID-19 testing for preop just prior to discharge Status: Acute Consult Attestations Medical Necessity Statement: As per attending physician Coding Level of Care Code Acute [employer] [place] for g Fwd Diagnoses Gallstone pancreatitis K85.10
[2021-09-10] MEDS: enoxaparin 40 mg/0.4 mL Syringe SUBCUT (00:21)
[2021-09-10] MEDS: famotidine 20 mg/2 mL INJ IVP (00:21)
[2021-09-10] MEDS: ketorolac 30 mg/mL INJ 15 MG IVP (00:26)
[2021-09-10 03:55] VITALS: BP 110/67; PULSE 95; RESP 20; TEMP 36.5; O2SAT 96
[2021-09-10] MEDS: sodium chloride 0.9% 1,000 ML 150 ML IV (04:00)
--- NOTE | 2021-09-10 04:35 | PC.NURSE ---
194 pt lying in bed talking with spouse. Pt reports abd pain 02/18. Advised of when next pain med is due. Voices understanding.
--- NOTE | 2021-09-10 04:36 | PC.NURSE ---
2200 Resting in bed. Awakens easily. no distress.
--- NOTE | 2021-09-10 04:37 | PC.NURSE ---
0005 Awke in bed. Medicated for abd pain. tolerates well.
--- NOTE | 2021-09-10 04:37 | PC.NURSE ---
0400 Awake in bed. Denies pain at present. No requests.
[2021-09-10 05:31] LABS: Basophils % 0.1 %; Eosinophils # 0.3 10^3/uL (0.0-0.8); Eosinophils % 4.5 %; Hematocrit 31.9 % (37.0-47.0); Lymphocytes # 1.6 10^3/uL (0.8-4.8); Lymphocytes % 22.2 %; Mean Corpuscular HGB Conc 31.3 g/dL (30.0-36.0); Mean Corpuscular Hemoglobin 23.6 pg (28.0-34.0); Mean Corpuscular Volume 75.2 fl (81-99); Mean Platelet Volume 9.2 fL (7.4-10.4); Monocytes # 0.6 10^3/uL (0.2-0.9); Monocytes % 7.7 %; Neutrophils # 4.77 10^3/uL (1.8-7.7); Neutrophils % 65.4 %; Nucleated Red Blood Cells % 0 %; Platelet Count 278 10^3/cmm (130-400); Red Blood Count 4.24 10^6/uL (4.1-5.3); Red Cell Distribution Width 14.6 % (12.1-15.1); White Blood Count 7.3 10^3/uL (4.0-10.0)
[2021-09-10 05:49] LABS: Alanine Aminotransferase 78 U/L (0-33); Albumin Level 3.3 g/dL (3.5-5.2); Alkaline Phosphatase 126 IU/L (35-105); Anion Gap 15.3 (5-19); Aspartate Amino Transferase 20 U/L (0-32); Blood Urea Nitrogen 4 mg/dL (6-20); Calcium 7.9 mg/dL (8.5-10.5); Carbon Dioxide 19 mmol/L (22-29); Chloride 111 mmol/L (98-107); Globulin 2.5 g/dL (1.3-4.6); Glomerular Filtration Rate 201.5 mL/min (90-130); Glucose 84 mg/dL (65-115); Lipase 282 U/L (13-60); Osmolality Calculated 290 mOsm/kg (285-295); Potassium 3.3 mmol/L (3.5-5.1); Sodium 142 mmol/L (136-145); Total Bilirubin 0.5 mg/dL (0.15-1.2); Total Protein 5.8 g/dL (6.6-8.7)
[2021-09-10] MEDS: cefTRIAXone 1,000 MG in sodium chloride 0.9% (plus) 50 ML 100 MG IV (06:17)
[2021-09-10 07:38] VITALS: BP 117/76; PULSE 103; RESP 16; TEMP 36.7; O2SAT 96
--- NOTE | 2021-09-10 08:13 | PM.PN ---
Subjective Subjective: Interval history: Patient feels a lot better, tolerating clear liquid diet, no nausea or vomiting, pain is improved Vitals/I&O/Wt Last Vital Signs Temp 98.1 F 09/10/21 07:38 Pulse 103 H 09/10/21 07:38 Resp 16 09/10/21 07:38 BP 117/76 09/10/21 07:38 Pulse Ox 96 09/10/21 07:38 09/09/21 09/10/21 09/10/21 22:59 06:59 14:59 Intake Total 1570 / 5620 1230 / 5620 50 / 50 Balance 1570 / 5620 1230 / 5620 50 / 50 Weight last 48 hrs Weight 168 lb 11.2 oz Weight 140 lb Physical Exam Narrative: EXAM NARRATIVE: Abdomen: Soft, nondistended, minimally tender Data : 09/10/21 04:52 09/10/21 04:52 Micro: Microbiology 09/09/21 04:39 Blood Culture - Preliminary Blood NEGATIVE TO DATE A&P Assessment and plan (1) Gallstone pancreatitis: Patient is overall doing better, lipase down to 282, LFTs trending down Advance to full liquid diet DC home later today My office will coordinate surgery with the patient which has been scheduled for next Status: Acute Attestations Medical Necessity Statement*: As per primary Coding Level of Care Code Acute 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
[2021-09-10 11:12] VITALS: BP 107/69; PULSE 102; RESP 16; TEMP 36.6; O2SAT 97
--- NOTE | 2021-09-10 12:04 | P.DS_ITS ---
Discharge Providers Date of Admission: 09/08/21 22:07 Date of Discharge: September 10, 2021 Attending Provider at Admission: Norma Burgos MD Attending Provider at Discharge: Kevan Acosta MD Consults: Surgery: Dr. Jeronimo Primary Care Provider: Michael De Paz MD Diagnoses at Discharge Discharge Diagnosis (1) Gallstone pancreatitis: Status: Acute Reason for Visit Reason for Visit: ADb Pains\N\V Hospital Course Hospital Course Lisandro Infante is a 20 year old female who presented to the ER on 09/08 with complaints of abdominal pain, nausea and vomiting for 3 days. In the emergency room she was noted to have gallstone pancreatitis and CT abdomen pelvis had shown CBD measuring 10 mm. Patient is therefore awaiting transfer to outside facility for ERCP. While awaiting transfer and MRCP was obtained which showed that there was no CBD stones or obstruction suggesting that she probably passed the stone. Labs were subsequently repeated which showed that her LFTs and lipase was trending down and therefore she was admitted for observation. She was started on clear liquid diet which was gradually advanced to full liquid diet. Patient's symptoms have more also resolved. She is tolerating the diet well. She has been discharged in hemodynamically stable condition advised to follow-up with surgery within next 1 week for cholecystectomy as an outpatient. She is advised to continue taking full liquid diet for next few days and then advance gradually to brat/soft diet and then gradually to regular diet within next 1 week. She is advised to take multiple small meals. All the questions were answered. Physical Exam Narrative: EXAM NARRATIVE: General: No acute distress, AO x3 HEENT: PERRLA, pupils bilaterally equal and reactive, pallors not present Chest: Normal vesicular breath sounds, no added sounds, equal good air entry bilaterally CVS: S1-S2 regular, no murmurs, no tachycardia, no gallops, no rubs Abdomen: Soft, TTP over epigastric region and right upper quadrant Neuro: No focal deficits, no facial deformity, AO x3, power 5/5 in all limbs Discharge Data Data Completed and Pending: Completed Studies During Hospitalization Category Date Time Status CT abdomen pelvis w con* [id number] Urge nt Cat Scan 09/08/21 04:57 Completed XR chest 1V francisco ble [id number] AM LABS Exams 09/09/21 04:00 Completed MR MRCP [id number] Urg ent MRI 09/08/21 18:07 Completed Pending at discharge Category Date Time Status Blood Culture AM LABS Lab 09/09/21 04:39 Results Complete Blood Co unt w/Auto AM LABS Lab 09/11/21 04:00 Ordered Complete Blood Co unt w/Auto AM LABS Lab 09/12/21 04:00 Ordered Urine Culture Sta t Lab 09/09/21 07:22 Results Labs from last 24 hours 09/10/21 09/10/21 04:52 04:52 WBC 7.3 RBC 4.24 Hgb 10.0 L Hct 31.9 L MCV 75.2 L MCH 23.6 L MCHC 31.3 RDW 14.6 Plt Count 278 MPV 9.2 Neut % (Auto) 65.4 Lymph % (Auto) 22.2 [place] % (Auto) 7.7 Eos % (Auto) 4.5 Baso % (Auto) 0.1 Neut # (Auto) 4.77 Lymph # (Auto) 1.6 [place] # (Auto) 0.6 Eos # (Auto) 0.3 Baso # (Auto) 0.0 Nucleated RBC % (a uto) 0 Nucleated RBCs # 0.0 Sodium 142 Potassium 3.3 L Chloride 111 H Carbon Dioxide 19 L Anion Gap 15.3 BUN 4 L Creatinine 0.4 L GFR Calculation 201.5 H Glucose 84 Calculated Osmolal ity 290 Calcium 7.9 L Total Bilirubin 0.5 AST 20 ALT 78 H Alkaline Phosphata se 126 H Total Protein 5.8 L Albumin 3.3 L Globulin 2.5 Lipase 282 H Addt'l Data from Hospital Stay: Laboratory Results WBC 7.3 10^3/uL (4.0- 10.0) 09/10/21 04:52 RBC 4.24 10^6/uL (4.1 -5.3) 09/10/21 04:52 Hgb 10.0 g/dL (11.5-1 5.3) L 09/10/21 04:52 Hct 31.9 % (37.0-47.0 ) L 09/10/21 04:52 MCV 75.2 fl (81-99) L 09/10/21 04:52 MCH 23.6 pg (28.0-34. 0) L 09/10/21 04:52 MCHC 31.3 g/dL (30.0-3 6.0) 09/10/21 04:52 RDW 14.6 % (12.1-15.1 ) 09/10/21 04:52 Plt Count 278 10^3/cmm (130 -400) 09/10/21 04:52 MPV 9.2 fL (7.4-10.4) 09/10/21 04:52 Neut % (Auto) 65.4 % 09/10/21 04:52 Lymph % (Auto) 22.2 % 09/10/21 04:52 [place] % (Auto) 7.7 % 09/10/21 04:52 Eos % (Auto) 4.5 % 09/10/21 04:52 Baso % (Auto) 0.1 % 09/10/21 04:52 Neut # (Auto) 4.77 10^3/uL (1.8 -7.7) 09/10/21 04:52 Lymph # (Auto) 1.6 10^3/uL (0.8- 4.8) 09/10/21 04:52 [place] # (Auto) 0.6 10^3/uL (0.2- 0.9) 09/10/21 04:52 Eos # (Auto) 0.3 10^3/uL (0.0- 0.8) 09/10/21 04:52 Baso # (Auto) 0.0 10^3/uL (0.0- 0.1) 09/10/21 04:52 Nucleated RBC % (a uto) 0 % 09/10/21 04:52 Nucleated RBCs # 0.0 /100WBC 09/10/21 04:52 Sodium 142 mmol/L (136-1 45) 09/10/21 04:52 Potassium 3.3 mmol/L (3.5-5 .1) L 09/10/21 04:52 Chloride 111 mmol/L (98-10 7) H 09/10/21 04:52 Carbon Dioxide 19 mmol/L (22-29) L 09/10/21 04:52 Anion Gap 15.3 (5-19) 09/10/21 04:52 BUN 4 mg/dL (6-20) L 09/10/21 04:52 Creatinine 0.4 mg/dL (0.5-0. 9) L 09/10/21 04:52 GFR Calculation 201.5 mL/min (90- 130) H 09/10/21 04:52 Glucose 84 mg/dL (65-115) 09/10/21 04:52 Calculated Osmolal ity 290 mOsm/kg (285- 295) 09/10/21 04:52 Calcium 7.9 mg/dL (8.5-10 .5) L 09/10/21 04:52 Magnesium 1.7 mg/dL (1.7-2. 3) 09/09/21 04:39 Total Bilirubin 0.5 mg/dL (0.15-1 .2) 09/10/21 04:52 AST 20 U/L (0-32) 09/10/21 04:52 ALT 78 U/L (0-33) H 09/10/21 04:52 Alkaline Phosphata se 126 IU/L (35-105) H 09/10/21 04:52 Total Protein 5.8 g/dL (6.6-8.7 ) L 09/10/21 04:52 Albumin 3.3 g/dL (3.5-5.2 ) L 09/10/21 04:52 Globulin 2.5 g/dL (1.3-4.6 ) 09/10/21 04:52 Triglycerides 81 mg/dL (0-150) 09/08/21 20:57 Lipase 282 U/L (13-60) H 09/10/21 04:52 HCG, Qual Negative (Negati ve) 09/08/21 03:55 Urine Color Tresa (Yellow) 09/08/21 03:59 Urine Appearance Clear (CLEAR) 09/08/21 03:59 Urine pH 5 (5-7) 09/08/21 03:59 Ur Specific Gravit y 1.025 (1.005-1.0 30) 09/08/21 03:59 Urine Protein 1+ (Negative) H 09/08/21 03:59 Urine Glucose (UA) Norm (Normal) 09/08/21 03:59 Urine Ketones 3+ (Negative) H 09/08/21 03:59 Urine Blood Trace (Negative) H 09/08/21 03:59 Urine Nitrate Negative (Negati ve) 09/08/21 03:59 Urine Bilirubin 2+ (Negative) H 09/08/21 03:59 Urine Urobilinogen 4 mg/dL (Negative ) H 09/08/21 03:59 Ur Leukocyte Phuong ase 2+ (Negative) H 09/08/21 03:59 Urine RBC 0-4 /hpf (0-2) H 09/08/21 03:59 Urine WBC >100 /hpf (0-5) H 09/08/21 03:59 Ur Squamous Epith Cells 25-40 /hpf (0-5) H 09/08/21 03:59 Amorphous Sediment Not Reportable 09/08/21 03:59 Urine Bacteria 2+ /hpf (NONE) H 09/08/21 03:59 Urine Mucus 2+ /hpf 09/08/21 03:59 Impressions Abdomen/Pelvis CT 09/08/21 04:57 IMPRESSION: 1. Cholelithiasis is present without cholecystitis. No gallbladder wall thickening or pericholecystic fluid collection. 2. Intrahepatic and extrahepatic ductal dilatation. Common bile duct diameter is 10 mm. If there is clinical or laboratory evidence of biliary obstructive process, ERCP or MRCP could further define. 3. Edematous appearance of pancreatic head neck and proximal body with adjacent peripancreatic fluid felt to represent acute pancreatitis. No evidence of pancr eatic necrosis nor loculated fluid collection. 4. Free fluid seen adjacent to the pancreas, extending into the pericolic gutters and upper abdomen, and within pelvis. No free air detected. Cholangiopancreatography MRI 09/08/21 18:07 IMPRESSION: 1. Enlarged gallbladder containing stones. The common bile duct is also distended but no obstructing stone or mass. This could be due to a recently passed calculus. 2. Upper abdominal free fluid. This might be due to the recently ruptured follicle seen on today's CT. Pancreatitis is also a consideration although the gland is not obviously swollen Chest X-Ray 09/09/21 04:00 IMPRESSION: No acute findings. Vitals: Last Vital Signs Temp 97.8 F 09/10/21 11:12 Pulse 102 H 09/10/21 11:12 Resp 16 09/10/21 11:12 BP 107/69 09/10/21 11:12 Pulse Ox 97 09/10/21 11:12 Discharge Plan Discharge Patient Disposition: Home Condition: Stable Prescriptions: New Pepcid 20 mg tablet 20 mg PO BID Qty: 14 RF: 0 Zofran 4 mg tablet 4 mg PO Q8H PRN (Reason: nausea and vomiting) 4 Days Qty: 14 RF: 0 levofloxacin 500 mg tablet 500 mg PO Q24H 3 Days Qty: 3 RF: 0 Continued norethindrone (contraceptive) 0.35 mg tablet 0.35 mg PO DAILY RF: 0 Discharge Orders: Discharge Order (Routine); Ordered 09/10/21 Ordered By: Kevan Acosta Referrals: Rony Jeronimo MD [Physician] - 4-7 days (Office will call on Monday to schedule) Michael De Paz MD [Primary Care Provider] - 1 month Discharge Diet: Advance as tolerated and Full LIquid Discharge Activity: Resume usual activity Patient Instructions: Opioid Safety Activity Restrictions/Additional Instructions: Advance to full liquid to GI soft/brat which includes bananas, toast, applesauce, mashed potatoes and then gradually to regular diet within next 1 week. Please take multiple small meals during the day. Please follow-up with Dr. Jeronimo on set appointment for possible cholecystectomy as an outpatient. Please take Levaquin for 3 more days to finish a course of antibiotics for UTI. Zofran as needed for nausea. Please abstain from alcohol use or smoking because both can precipitate pancreatitis. Discharge Attestations Time Spent in Discharge Care*: greater than 30 min Specific Discharge Activities: educating patient, educating and/or supporting family/caregiver, discussing with pcp/other providers, discussing with case management rn/social workers/dc planners, documenting/other paperwork and evaluating patient/reviewing data Status at Discharge: Cognitive status at discharge: cognitively intact , Behavioral status at discharge: cooperative , Functional status at discharge: independent ambulation Overall status at discharge: patient is back to baseline Quality Metrics Clinical Quality Measures During this hospital stay, did patient experience: None Coding Level of Care Code Acute [facility] AURELIANO note Diagnoses Gallstone pancreatitis K85.10
[2021-09-10 13:11] VITALS: BP 107/69; PULSE 102; RESP 16; TEMP 36.6; O2SAT 97
--- NOTE | 2021-09-10 13:16 | PC.CHAP ---
Pastoral Care Encounter/Spiritual Assessment Type of Contact [] Declined [facility] visit [] Patient/Family/Request visit [] Outpatient visit [xx] Follow-up visit [] Physician referral [] Code/Alert [xx] Routine visit [] Staff referral [] Actively dying [] Patient sleeping [] Family support [] [] Out of room [] Palliative care [] [] Receiving care in room [] Pre-surgical visit [] Trauma [] Long length of stay [] ICU visit [] Other: Relational/Emotional Strength [xx] Patient feels connected with others/family/visitors/staff [] Distress [] Loneliness/isolation [] Abandonment Spirituality of Patient [] Person of Cherelle [] Attends Bahai of their Cherelle [] Believes in Prayer [] Reads Bible or Scientology materials [] There are Spiritual issues to be addressed Radiation Protection Technician Interventions [] Prayer [xx] Active listening [xx] Non-anxious presence [] Spiritual/emotional support [] Crisis/trauma care [] Spiritual counseling [] Bereavement support [] Provided bereavement packet [] Provided Bible/devotional materials [] Provided toy/stuffed animal, coloring book to patient or family member [] Provided Communion [] Anointing/[place] [] Salvation [xx] Completed spiritual assessment [] Other: Impact on Illness or Injury [] Angry [] Fearful [] Anxious [] Often cries [] Exhaustion [] Unable to work [] Unable to attend advent [] Unable to walk/stand [] Unable to read [] Unable to drive [] Unable to eat/drink [] Unable to sleep [] Unable to be with family [] Patient intubated [] Other: Summary Spouse present. They declined prayer. Patient expects to be discharged today. Time spent with patient 3 minutes
== END 2021-09-10 13:12 | disposition home or self-care (01) | DRG 439 ==
LOC: ER 22:30 → MEDSURG 23:41
PROVIDERS: Surgery; Admitting Provider Student in an Organized Health Care Education/Training Program; Emergency Provider Emergency Medicine; PCP Family Medicine; Visit Provider Student in an Organized Health Care Education/Training Program
DX: K85.10 Biliary acute pancreatitis without necrosis or infection (principal); N39.0 Urinary tract infection, site not specified
CPT/HCPCS: 36415; 71045; 74177; 74181; 80053; 81001; 83690; 83735; 84478; 84703; 85025; 87040; 87086; 96365; 96372; 96375; 99285; J0696; J1170; J1200; J1650; J1885; J1956; J2270; J2405; J2765; J3490; J7030; Q9967

== ENCOUNTER → 2021-09-13 16:17 | Outpatient (BNVA) | payer BC, MEDICAID, SELFPAY | PROVIDERS: PCP Family Medicine; Visit Provider Surgery | DX: K85.10 Biliary acute pancreatitis without necrosis or infection (principal); Z11.52 Encounter for screening for COVID-19 | CPT/HCPCS: 85025; 87635 ==

== ENCOUNTER 2021-09-14 07:06 | Outpatient (CLI) | payer BC, MEDICAID, SELFPAY ==
[2021-09-14 07:28] LABS: Basophils % 0.5 %; Eosinophils # 0.2 10^3/uL (0.0-0.8); Eosinophils % 6.1 %; Hematocrit 34.7 % (37.0-47.0); Hemoglobin 10.7 g/dL (11.5-15.3); Lymphocytes # 1.4 10^3/uL (0.8-4.8); Lymphocytes % 38.2 %; Mean Corpuscular HGB Conc 30.8 g/dL (30.0-36.0); Mean Corpuscular Hemoglobin 23.5 pg (28.0-34.0); Mean Corpuscular Volume 76.3 fl (81-99); Mean Platelet Volume 8.6 fL (7.4-10.4); Monocytes # 0.3 10^3/uL (0.2-0.9); Monocytes % 7.5 %; Neutrophils # 1.77 10^3/uL (1.8-7.7); Neutrophils % 47.4 %; Nucleated Red Blood Cells % 0 %; Platelet Count 409 10^3/cmm (130-400); Red Blood Count 4.55 10^6/uL (4.1-5.3); Red Cell Distribution Width 14.9 % (12.1-15.1); White Blood Count 3.7 10^3/uL (4.0-10.0)
[2021-09-14 07:49] LABS: Alanine Aminotransferase 32 U/L (0-33); Alkaline Phosphatase 116 IU/L (35-105); Aspartate Amino Transferase 12 U/L (0-32); Blood Urea Nitrogen 4 mg/dL (6-20); Calcium 8.7 mg/dL (8.5-10.5); Carbon Dioxide 25 mmol/L (22-29); Chloride 104 mmol/L (98-107); Globulin 2.9 g/dL (1.3-4.6); Glomerular Filtration Rate 126.2 mL/min (90-130); Glucose 93 mg/dL (65-115); Lipase 133 U/L (13-60); Osmolality Calculated 289 mOsm/kg (285-295); Sodium 141 mmol/L (136-145); Total Bilirubin 0.3 mg/dL (0.15-1.2); Total Protein 6.9 g/dL (6.6-8.7)
== END 2021-09-14 07:07 | disposition home or self-care (01) ==
LOC: LAB 07:10
PROVIDERS: PCP Family Medicine; Visit Provider Surgery
DX: K85.10 Biliary acute pancreatitis without necrosis or infection (principal)
CPT/HCPCS: 36415; 80053; 83690; 85025

== ENCOUNTER 2021-09-16 09:36 | Day surgery (SDC) | payer BC, MEDICAID, SELFPAY ==
[2021-09-15 14:53] VITALS: BMI 22.8
[2021-09-16] VITALS (10 sets, daily range): BP systolic 108–119; BP diastolic 57–76; PULSE 61–102; RESP 11–25; TEMP 36.2–36.6; O2SAT 95–100
[2021-09-16 10:09] LABS: OR HCG Qualitative Urine Negative (Negative)
[2021-09-16] MEDS: sodium chloride 0.9% 1,000 ML 30 ML IV (10:12)
--- NOTE | 2021-09-16 10:38 | W.PM.OPSFHP ---
Same Day Surgery H&P Indication for Procedure/HPI DATE OF PROCEDURE: September 16, 2021 CHIEF COMPLAINT/INDICATIONFOR SURGICAL PROCEDURE: Gallstone pancreatitis, cholecystectomy today PREOP DIAGNOSIS: Gallstone pancreatitis PLANNED PROCEDRUE: Operation Date: 09/16/21 11:55 Proposed Procedures p Laparoscopic Cholecystectomy [id number] K85.10(Not Applicable) - Rony Jeronimo MD Medications/Allergies* Home Medications Medication Instructions Recorded Confirmed Type norethindrone (contraceptive) 0.35 mg PO DAILY 09/08/21 09/16/21 History Allergies/Adverse Reactions Allergy/AdvReac Type Severity Reaction Status Date / Time amoxicillin Allergy ALGY-Rash Verified 09/15/21 14:59 azithromycin Allergy ALGY-Rash Verified 09/15/21 14:59 Current Medications: Generic Name Dose Route Start Last Admin Trade Name Freq PRN Reason Stop Dose Admin Sodium Chloride 1,000 mls @ 30 mls/hr 09/16/21 10:00 09/16/21 10:12 Sodium Chloride 0.9% IV 09/17/21 09:59 30 mls/hr .Q24H RADHA Administration Pertinent History/Comorbid Conditions* Medical History (Updated 09/09/21 @ 16:10 by Rony Jeronimo MD) Gallstone pancreatitis Gestational diabetes Pertinent Exam Findings alert, oriented x 3 and regular rate & rhythm Recommendations Surgery/Procedure today Coding Level of Care Code Acute [employer] [facility]
[2021-09-16] MEDS: levofloxacin-dextrose 5 % 500 MG/100 ML PREMIX 100 MG IV (13:25)
--- NOTE | 2021-09-16 14:04 | PM.OP ---
Operative Report Date of procedure: September 16, 2021 Pre-op Diagnosis: Gallstone pancreatitis Post-op diagnosis: same Procedure Done: Laparoscopic cholecystectomy Specimens removed/disposition: Gallbladder Surgeon: Rony Jeronimo Anesthesia: General Condition: stable Disposition: PACU Procedure: The patient was taken to the operating room and was intubated under general anesthesia. After the antibiotic had been administered, the abdomen was prepped and draped in a sterile manner. Using a #15 blade, a 1 centimeter infraumbilical curvilinear incision was made and using an open Og technique the peritoneal cavity was entered. A 10 millimeter port was placed and 15 millimeters of pneumoperitoneum was created. A 10 millimeter, 30 degrees scope was then introduced. Three 5 millimeter ports were placed in the epigastric, midclavicular and the anterior axillary line two fingerbreadths below the costal margin on the right side under the direct visualization. Ratcheted forceps were introduced into the lateral most port and was used to retract the fundus of the gallbladder cephalad and using forceps the infundibulum of the gallbladder was retracted laterally. Using L-hook cautery the peritoneum overlying the Calot's triangle was opened medially and laterally until the cystic duct and the cystic artery were skeletonized. Dissection was carried along the body of the gallbladder and after ensuring critical view of safety, 4 clips applied on the cystic duct and 3 clips applied on the cystic artery and cut leaving, 3 clips on the remaining portion of the duct and 2 clips on the remaining portion of the artery. The rest of the gallbladder was dissected off the liver using L-hook cautery. There was no bleeding or bile leaking noted from the gallbladder fossa and the clips appeared to be in place. An EndoCatch bag was introduced to remove the gallbladder. All the ports were removed under direct visualization and there was no bleeding noted from the port sites. The fascia of the umbilicus was closed using [id number] 0 Vicryl sutures and the subcutaneous tissue was approximated using 3-0 Vicryl sutures. The skin at all four ports were closed using 4-0 Monocryl and Dermabond. A total of 10 millimeters of 0.5% Marcaine was infiltrated around the port sites. The patient was stable throughout the procedure.
--- NOTE | 2021-09-16 14:52 | ANE.PACU2 ---
Inpatient post-anesthesia follow up: Airway intact: Yes Vital signs: Temperature 97.2 F Pulse Rate 68 Respiratory Rate 16 Blood Pressure 115/57 Pulse Oximetry 99 Oxygen Delivery Me thod Nasal Cannula Oxygen Flow Rate 2 Fraction of Inspir ed Oxygen Hydration adequate: Yes Nausea and vomiting: No Pain level: 2 Mental status: Baseline
[2021-09-16] MEDS: HYDROcodone-acetaminophen 5-325 mg Tablet 1 TAB PO (15:18)
== END 2021-09-16 15:36 | disposition home or self-care (01) ==
PROVIDERS: Anesthesiology; PCP Family Medicine; Visit Provider Surgery
PROC: 0FT44ZZ Resection of Gallbladder, Percutaneous Endoscopic Approach (ICD-10-PCS; CPT 47562; principal; 2021-09-16 11:45)
DX: K81.1 Chronic cholecystitis (principal); K85.10 Biliary acute pancreatitis without necrosis or infection
CPT/HCPCS: 47562; 81025; 84703; 88304; J1100; J1200; J1956; J2250; J2405; J2704; J2710; J3010; J3490; J7030